=== PATIENT | female | born 1950 | race Caucasian/White ===

== ENCOUNTER → 2018-12-17 | Outpatient (CLI) | payer MEDICARE, OTHER ==
--- NOTE | 2018-12-17 11:09 | REP ---
Chest two views HISTORY: Chronic cough Comparison: None The lungs are clear. The cardiac silhouette is enlarged. The pulmonary vasculature is normal in appearance. The bony structure is intact. IMPRESSION: Cardiomegaly. Electronically Signed by Johnnie Braga MD 12/17/2018 11:00 A
== END ==
LOC: M ADAMS 10:01
PROVIDERS: ATTEND Family Medicine
DX: I51.7 Cardiomegaly (principal); R05 Cough; E11.9 Type 2 diabetes mellitus without complications; E78.5 Hyperlipidemia, unspecified
CPT/HCPCS: 71046; 80053; 80061; 82043; 83036; 84439; 84443; 85027; G0463

== ENCOUNTER → 2018-12-17 | Outpatient (REF) | payer MEDICARE, OTHER ==
[2018-12-17 12:35] LABS: HEMOGLOBIN 13.6 g/dl (12.0-15.5); MEAN CORPUSCULAR HEMOGLOBIN 29.4 pg (27.0-33.0); MEAN CORPUSCULAR HGB CONC 33.2 g/dl (32.0-36.5); MEAN CORPUSCULAR VOLUME 88.7 fl (80.0-96.0); PLATELET COUNT, AUTOMATED 256 10^3/uL (150-450); RED BLOOD COUNT 4.62 10^6/uL (4.00-5.40); WHITE BLOOD COUNT 8.5 10^3/uL (4.0-10.0)
[2018-12-17 13:37] LABS: ALBUMIN 3.7 GM/DL (3.2-5.2); ALT/SGPT 24 U/L (12-78); BILIRUBIN,TOTAL 0.3 MG/DL (0.2-1.0); BLOOD UREA NITROGEN 12 MG/DL (7-18); CARBON DIOXIDE LEVEL 28 MEQ/L (21-32); CHLORIDE LEVEL 106 MEQ/L (98-107); CHOLESTEROL LEVEL 149 MG/DL (<200); CHOLESTEROL RISK RATIO 2.811 (<5); CREATININE FOR GFR 0.82 MG/DL (0.55-1.30); FREE T4 0.98 NG/DL (0.76-1.46); GLOMERULAR FILTRATION RATE > 60.0 (>45); GLUCOSE, FASTING 155 MG/DL (70-100); HDL CHOLESTEROL 53 MG/DL (>40); LDL CHOLESTEROL 65 MG/DL (<100); NON-HDL-C 96 MG/DL; POTASSIUM SERUM 4.3 MEQ/L (3.5-5.1); SODIUM LEVEL 141 MEQ/L (136-145); TOTAL PROTEIN 6.8 GM/DL (6.4-8.2); TRIGLYCERIDES LEVEL 155 MG/DL (<150)
[2018-12-17 14:03] LABS: MALB URINE SIEMENS 16.5 MG/L; MAU/CREAT RATIO 8.7 MCG/MG (0.0-30.0)
== END ==
LOC: M SFHCADAM 09:43
PROVIDERS: ATTEND Family Medicine
DX: E11.9 Type 2 diabetes mellitus without complications (principal); E78.5 Hyperlipidemia, unspecified; I11.9 Hypertensive heart disease without heart failure; R05 Cough

== ENCOUNTER → 2019-04-21 | Outpatient (REF) | payer MEDICARE, OTHER | LOC: M SFHCPLAZ 12:57 | PROVIDERS: ATTEND Dermatology | DX: L57.0 Actinic keratosis (principal) ==

== ENCOUNTER → 2019-06-19 | Outpatient (REF) | payer MEDICARE ==
[2019-06-19 12:50] LABS: BLOOD UREA NITROGEN 8 MG/DL (7-18); CARBON DIOXIDE LEVEL 28 MEQ/L (21-32); CHLORIDE LEVEL 107 MEQ/L (98-107); CREATININE FOR GFR 0.83 MG/DL (0.55-1.30); GLOMERULAR FILTRATION RATE > 60.0 (>45); GLUCOSE, FASTING 117 MG/DL (70-100); POTASSIUM SERUM 3.9 MEQ/L (3.5-5.1); SODIUM LEVEL 144 MEQ/L (136-145)
[2019-06-19 13:23] LABS: HEMOGLOBIN A1c 8.8 %
== END ==
LOC: M SFHCADAM 10:03
PROVIDERS: ATTEND Family Medicine
DX: E11.9 Type 2 diabetes mellitus without complications (principal)

== ENCOUNTER → 2019-12-31 | Outpatient (CLI) | payer MEDICARE ==
[2019-12-31 16:18] LABS: MEAN CORPUSCULAR HEMOGLOBIN 29.4 pg (27.0-33.0); MEAN CORPUSCULAR HGB CONC 31.8 g/dl (32.0-36.5); MEAN CORPUSCULAR VOLUME 92.4 fl (80.0-96.0); PLATELET COUNT, AUTOMATED 283 10^3/uL (150-450); RED BLOOD COUNT 4.76 10^6/uL (4.00-5.40)
[2019-12-31 16:33] LABS: ALBUMIN 3.6 GM/DL (3.2-5.2); ALT/SGPT 23 U/L (12-78); BILIRUBIN,TOTAL 0.3 MG/DL (0.2-1.0); BLOOD UREA NITROGEN 13 MG/DL (7-18); CALCIUM LEVEL 9.2 MG/DL (8.8-10.2); CARBON DIOXIDE LEVEL 31 MEQ/L (21-32); CHLORIDE LEVEL 106 MEQ/L (98-107); CHOLESTEROL LEVEL 147 MG/DL (<200); CHOLESTEROL RISK RATIO 2.578 (<5); CREATININE FOR GFR 0.89 MG/DL (0.55-1.30); GLOMERULAR FILTRATION RATE > 60.0 (>45); GLUCOSE, FASTING 166 MG/DL (70-100); HDL CHOLESTEROL 57 MG/DL (>40); LDL CHOLESTEROL 64 MG/DL (<100); NON-HDL-C 90 MG/DL; POTASSIUM SERUM 4.5 MEQ/L (3.5-5.1); SODIUM LEVEL 142 MEQ/L (136-145); TOTAL PROTEIN 6.9 GM/DL (6.4-8.2); TRIGLYCERIDES LEVEL 131 MG/DL (<150)
[2019-12-31 16:49] LABS: MALB URINE SIEMENS 14.4 MG/L
== END ==
LOC: M WUC 10:49
PROVIDERS: ATTEND Family Medicine
DX: E11.9 Type 2 diabetes mellitus without complications (principal); E78.5 Hyperlipidemia, unspecified; J20.9 Acute bronchitis, unspecified

== ENCOUNTER → 2020-04-22 | Outpatient (REF) | payer MEDICARE ==
[~2020-04-22] MED LIST: ECOT81TA5 PO; HUMU1INJ; INSULANT SQ; LISI10TA4; METF500T13; SIMV40TA20
[2020-04-22 13:53] LABS: BLOOD UREA NITROGEN 12 MG/DL (7-18); CALCIUM LEVEL 9.6 MG/DL (8.8-10.2); CARBON DIOXIDE LEVEL 28 MEQ/L (21-32); CHLORIDE LEVEL 109 MEQ/L (98-107); CREATININE FOR GFR 0.96 MG/DL (0.55-1.30); GLOMERULAR FILTRATION RATE > 60.0 (>45); GLUCOSE, FASTING 88 MG/DL (70-100); POTASSIUM SERUM 4.3 MEQ/L (3.5-5.1); SODIUM LEVEL 144 MEQ/L (136-145)
[2020-04-22 15:54] LABS: HEMOGLOBIN A1c 6.9 %
== END ==
LOC: M SFHCADAM 09:34
PROVIDERS: ATTEND Family Medicine
DX: E11.9 Type 2 diabetes mellitus without complications (principal)

== ENCOUNTER → 2020-05-27 | Outpatient (CLI) | payer MEDICARE ==
--- NOTE | 2020-05-31 15:41 | REPMRS ---
Patient History The patient states she has not had a clinical breast exam in over a year. Patient has history of skin cancer. Family history of breast cancer at age 62 in sister. No Hormone Replacement Therapy Digital Woman Screen Mammo: May 27, 2020 - Exam #: [id number] Bilateral CC and MLO view(s) were taken. Technologist: Henrietta Polanco, Technologist Prior study comparison: 2016, bilateral digital woman screen mammo, performed at [facility]. FINDINGS: There are scattered fibroglandular densities. The Volpara volumetric breast density category is:B. There has been no change in the appearance of the mammogram from the prior studies. There is a mild amount of scattered fibroglandular density which is fairly symmetric. There is no interval development of dominant mass, architectural distortion, or grouped microcalcification suggestive of malignancy. 3-D tomosynthesis shows no additional findings. Assessment: BI-RADS/ACR category 1 mammogram. Negative Mammogram. Recommendation Routine screening mammogram of both breasts in 1 year (for women over age 40). This patient's Lifetime Breast Cancer Risk is estimated at 9.5 %. This mammogram was interpreted with the aid of an FDA-approved computer-aided dectection system. Electronically Signed By: Gonzalo Velarde MD 05/31/20 [id number]
--- NOTE | 2020-06-04 08:42 | DEXA ---
AP SPINE L1 - L4 1.343 1.2 2.8 LT FEMUR TOTAL 1.210 1.6 2.9 LT NECK 1.176 1.0 2.6 RT FEMUR TOTAL 1.246 1.9 3.2 RT NECK 1.099 0.4 2.0 TOTAL BODY TOTAL OTHER COMMENTS: There is low bone density of the spine and hips. FOLLOW-UP: Recommendation for the next bone density exam: 5 years. DEANN
== END ==
LOC: M WHC 12:14
PROVIDERS: ATTEND Physician Assistant Medical
DX: Z12.31 Encounter for screening mammogram for malignant neoplasm of breast (principal); M81.0 Age-related osteoporosis without current pathological fracture

== ENCOUNTER → 2020-08-12 | Outpatient (CLI) | payer MEDICARE | LOC: M LABSMTC 11:24 | PROVIDERS: ATTEND Anesthesiology | DX: Z01.812 Encounter for preprocedural laboratory examination (principal); Z20.828 Contact with and (suspected) exposure to other viral communicable diseases | CPT/HCPCS: C9803; U0003 ==

== ENCOUNTER → 2020-08-18 | Outpatient (REF) | payer MEDICARE ==
[2020-08-18 13:10] LABS: CALCIUM LEVEL 9.4 MG/DL (8.8-10.2); CREATININE FOR GFR 1.04 MG/DL (0.55-1.30); GLOMERULAR FILTRATION RATE 56.1 (>45); POTASSIUM SERUM 4.6 MEQ/L (3.5-5.1)
[2020-08-18 13:16] LABS: HEMOGLOBIN A1c 6.6 %
== END ==
LOC: M SFHCADAM 09:56
PROVIDERS: ATTEND Family Medicine
DX: E11.649 Type 2 diabetes mellitus with hypoglycemia without coma (principal)

== ENCOUNTER → 2020-08-19 | Outpatient (CLI) | payer MEDICARE ==
--- NOTE | 2020-08-19 15:24 | REP ---
INDICATION: BRONCHITIS. COMPARISON: Comparison chest x-ray December 17, 2018. TECHNIQUE: Two views.. FINDINGS: The lungs are symmetrically aerated and free of infiltrate. Pleural angles are sharp. Heart is moderately enlarged unchanged. Cardiothoracic ratio is 57.3%. The thoracic aorta is somewhat tortuous. There are degenerative changes in the thoracic spine. Pulmonary vasculature is not increased. IMPRESSION: Moderate cardiac enlargement. No infiltrate seen. Otherwise no acute disease.. <Electronically signed by Gonzalo Velarde > 08/19/20 [id number]
== END ==
LOC: M LABSMTC 11:19 → M ADAMS 11:19
PROVIDERS: ATTEND Family Medicine
DX: J20.9 Acute bronchitis, unspecified (principal); M51.34 Other intervertebral disc degeneration, thoracic region

== ENCOUNTER → 2020-09-09 | Outpatient (CLI) | payer MEDICARE ==
[~2020-09-09] MED LIST changes: +VALS1TAB66 PO
== END ==
LOC: M LABSMT 15:00
PROVIDERS: ATTEND Anesthesiology
DX: Z20.828 Contact with and (suspected) exposure to other viral communicable diseases (principal)

== ENCOUNTER 2020-09-14 06:41 | Day surgery (SDC) | payer MEDICARE ==
[~2020-09-14] VITALS: Ht 165.1 cm; Wt 118.8 kg
[~2020-09-14 06:41] MED LIST changes: +NS 1,000 ML IV ONE
[2020-09-14] MEDS ORDERED: propofoL 200 MG/20 ML VIAL As Ordered ONE ×2 (07:38→08:13)
--- NOTE | 2020-09-14 08:44 | ROOR ---
" Patient Name: Kay Mendoza Procedure Date: 09/14/2020 7:35 AM Date of : 1950 Age: 70 Room: [facility] Gender: Female Note Status: Finalized Procedure: Colonoscopy Indications: Screening for colorectal malignant neoplasm Providers: Wagner Hawthorne MD Referring MD: Elbert Stone MD Requesting Provider: Medicines: Monitored Anesthesia Care Complications: No immediate complications. Procedure: Pre-Anesthesia Assessment: - Prior to the procedure, a History and Physical was performed, and patient medications and allergies were reviewed. The patient is competent. The risks and benefits of the procedure and the sedation options and risks were discussed with the patient. All questions were answered and informed consent was obtained. Patient identification and proposed procedure were verified by the physician, the nurse and the anesthesiologist in the procedure room. Mental Status Examination: alert and oriented. Airway Examination: normal oropharyngeal airway and neck mobility. Respiratory Examination: clear to auscultation. CV Examination: normal. Prophylactic Antibiotics: The patient does not require prophylactic antibiotics. Prior Anticoagulants: The patient has taken no previous anticoagulant or antiplatelet agents. ASA Grade Assessment: II - A patient with mild systemic disease. After reviewing the risks and benefits, the patient was deemed in satisfactory condition to undergo the procedure. The anesthesia plan was to use monitored anesthesia care (MAC). Immediately prior to administration of medications, the patient was re-assessed for adequacy to receive sedatives. The heart rate, respiratory rate, oxygen saturations, blood pressure, adequacy of pulmonary ventilation, and response to care were monitored throughout the procedure. The physical status of the patient was re-assessed after the procedure. The Colonoscope was introduced through the anus and advanced to the cecum, identified by appendiceal orifice and ileocecal valve. The colonoscopy was performed without difficulty. The patient tolerated the procedure well. The quality of the bowel preparation was good. The ileocecal valve, appendiceal orifice, and rectum were photographed. Scope insertion time was 3 minutes. Scope withdrawal time was 9 minutes. The total duration of the procedure was 25 minutes. Findings: The perianal and digital rectal examinations were normal. Six sessile polyps were found in the recto-sigmoid colon, transverse colon and ascending colon. The polyps were 5 to 12 mm in size. These polyps were removed with a hot snare. Resection and retrieval were complete. Verification of patient identification for the specimen was done by the physician and nurse using the patient's name, date and medical record number. Estimated blood loss was minimal. A 16 mm polyp was found in the sigmoid colon. The polyp was |multi-lobulated and sessile|. The polyp was removed with a piecemeal technique using a hot biopsy forceps and The polyp was removed with a hot snare. Resection and retrieval were complete. Two hemostatic clips were successfully placed. Multiple small and large-mouthed diverticula were found from sigmoid to descending colon. There was no evidence of diverticular bleeding. Non-bleeding external and internal hemorrhoids were found during retroflexion. The hemorrhoids were medium-sized. Impression: - Six 5 to 12 mm polyps at the recto-sigmoid colon, in the transverse colon and in the ascending colon, removed with a hot snare. Resected and retrieved. - One 16 mm polyp in the sigmoid colon, removed piecemeal using a hot biopsy forceps and removed with a hot snare. Resected and retrieved. Clips were placed. - Moderate diverticulosis from sigmoid to descending colon. There was no evidence of diverticular bleeding. - Non-bleeding external and internal hemorrhoids. Recommendation: - Patient has a contact number available for emergencies. The signs and symptoms of potential delayed complications were discussed with the patient. Return to normal activities tomorrow. Written discharge instructions were provided to the patient. - High fiber diet. - Continue present medications. - Use fiber, for example Citrucel, Fibercon, Konsyl or Metamucil. - Await pathology results. - Repeat colonoscopy in 4 months for surveillance after piecemeal polypectomy and for surveillance of multiple polyps. - Return to GI clinic in [facility] (address [address], [address], [place], [facility] [place]) in 4 -- 6 weeks. Please call GI clinic @ [phone] for apppointment date and time. - Return to primary care physician. Procedure Code(s): --- Professional --- 47809, Colonoscopy, flexible; with removal of tumor(s), polyp(s), or other lesion(s) by snare technique Diagnosis Code(s): --- Professional --- K63.5, Polyp of colon Z12.11, Encounter for screening for malignant neoplasm of colon K64.8, Other hemorrhoids K57.30, Diverticulosis of large intestine without perforation or abscess without bleeding CPT copyright 2019 [employer]. All rights reserved. The codes documented in this report are preliminary and upon rug scratcher review may be revised to meet current compliance requirements. Wagner Hawthorne MD Wagner Hawthorne MD 09/14/2020 8:44:39 AM Electronically signed by Wagner Hawthorne MD Number of Addenda: 0 Note Initiated On: 09/14/2020 7:35 AM Estimated Blood Loss: Estimated blood loss was minimal."
[2020-09-14 09:00] VITALS: BP 137/78
== END 2020-09-14 09:00 | disposition home or self-care (01) ==
LOC: M OPP 06:41
PROVIDERS: ATTEND Internal Medicine Gastroenterology
DX: Z12.11 Encounter for screening for malignant neoplasm of colon (principal); Z63.5 Disruption of family by separation and divorce; K64.8 Other hemorrhoids; K57.30 Diverticulosis of large intestine without perforation or abscess without bleeding; E11.9 Type 2 diabetes mellitus without complications; I10 Essential (primary) hypertension; Z79.4 Long term (current) use of insulin; Z79.899 Other long term (current) drug therapy
CPT/HCPCS: 45385; 88305; U0003

== ENCOUNTER → 2020-09-16 | Outpatient (CLI) | payer MEDICARE ==
[~2020-09-16] MED LIST changes: +LISI10TA22; -LISI10TA4; -NS 1,000 ML IV ONE
[2020-09-16 16:21] LABS: HEMATOCRIT 42.9 % (36.0-47.0); HEMOGLOBIN 13.1 g/dl (12.0-15.5); MEAN CORPUSCULAR HEMOGLOBIN 27.8 pg (27.0-33.0); MEAN CORPUSCULAR HGB CONC 30.5 g/dl (32.0-36.5); MEAN CORPUSCULAR VOLUME 90.9 fl (80.0-96.0); PLATELET COUNT, AUTOMATED 237 10^3/uL (150-450); RED BLOOD COUNT 4.72 10^6/uL (4.00-5.40); WHITE BLOOD COUNT 8.4 10^3/uL (4.0-10.0)
[2020-09-16 16:33] LABS: BLOOD UREA NITROGEN 14 MG/DL (7-18); CALCIUM LEVEL 9.1 MG/DL (8.8-10.2); CARBON DIOXIDE LEVEL 25 MEQ/L (21-32); CHLORIDE LEVEL 108 MEQ/L (98-107); CREATININE FOR GFR 0.95 MG/DL (0.55-1.30); FREE T4 1.09 NG/DL (0.76-1.46); GLOMERULAR FILTRATION RATE > 60.0 (>45); GLUCOSE, FASTING 165 MG/DL (70-100); POTASSIUM SERUM 4.5 MEQ/L (3.5-5.1); SODIUM LEVEL 140 MEQ/L (136-145); THYROID STIMULATING HORMONE 0.643 uIU/ML (0.358-3.740)
== END ==
LOC: M WUC 10:42
PROVIDERS: ATTEND Family Medicine
DX: R00.8 Other abnormalities of heart beat (principal); C18.7 Malignant neoplasm of sigmoid colon; Z79.899 Other long term (current) drug therapy

== ENCOUNTER → 2020-09-16 | Outpatient (REF) | payer MEDICARE ==
[~2020-09-16] MED LIST changes: -LISI10TA22; +LISI10TA4
[2020-09-16 18:01] LABS: ALBUMIN 3.7 GM/DL (3.2-5.2); ALT/SGPT 19 U/L (12-78); BILIRUBIN,DIRECT 0.1 MG/DL (0.0-0.2); BILIRUBIN,TOTAL 0.4 MG/DL (0.2-1.0); BLOOD UREA NITROGEN 13 MG/DL (7-18); CREATININE FOR GFR 0.96 MG/DL (0.55-1.30); GLOMERULAR FILTRATION RATE > 60.0 (>45); TOTAL PROTEIN 6.8 GM/DL (6.4-8.2)
[2020-09-16 18:32] LABS: BASO # 0.1 10^3/uL (0.0-0.2); BASO % 0.7 % (0.0-1.0); EOS # 0.3 10^3/uL (0.0-0.5); EOS % 4.1 % (0.0-3.0); HEMOGLOBIN 13.2 g/dl (12.0-15.5); LYMPH # 1.9 10^3/uL (1.5-5.0); LYMPH % 23.3 % (24.0-44.0); MEAN CORPUSCULAR HEMOGLOBIN 27.8 pg (27.0-33.0); MEAN CORPUSCULAR HGB CONC 30.7 g/dl (32.0-36.5); MEAN CORPUSCULAR VOLUME 90.5 fl (80.0-96.0); MONO # 0.5 10^3/uL (0.0-0.8); MONO % 6.6 % (0.0-5.0); NEUTROPHILS # 5.4 10^3/uL (1.5-8.5); NEUTROPHILS % 65.2 % (36.0-66.0); PLATELET COUNT, AUTOMATED 240 10^3/uL (150-450); RED BLOOD COUNT 4.75 10^6/uL (4.00-5.40); WHITE BLOOD COUNT 8.2 10^3/uL (4.0-10.0)
== END ==
LOC: M LAB REF 17:23
PROVIDERS: ATTEND Internal Medicine Gastroenterology
DX: C18.7 Malignant neoplasm of sigmoid colon (principal)

== ENCOUNTER → 2020-09-17 | Outpatient (CLI) | payer MEDICARE ==
--- NOTE | 2020-09-20 10:29 | ECHO ---
DATE OF PROCEDURE: 09/17/2020 Age: 70 Gender: Female Height: 168 cm Weight: 120 kg REFERRING PHYSICIAN: Elbert Stone MD INDICATION: Abnormal ECG. MEASUREMENTS: 2D Measurements: Intraventricular septum 0.96 cm Left atrium 4.2 cm Aortic root 3.0 cm Proximal ascending aorta 3.6 cm Inferior vena cava 1.8 cm Doppler Measurements: No aortic stenosis No aortic regurgitation Aortic valve velocity 112 cm/s LVOT velocity 64.8 cm/s Trace mitral regurgitation No mitral stenosis Mitral E velocity 70.6 cm/s Mitral A velocity 62.0 cm/s Mitral deceleration time 222 msec No tricuspid regurgitation Mild pulmonic regurgitation MITRAL ANNULAR TISSUE DOPPLER Technically difficult - E prime septal 4.4 cm/s, E prime lateral 2.5 cm/s ? DESCRIPTION: Rhythm was sinus with frequent PVCs. This was a moderately technically difficult echocardiogram. No pericardial effusion. CONCLUSIONS: 1. Left ventricle appeared to be normal in size and wall thickness. Probably normal regional left ventricular (LV) wall motion and wall thickening, but technically difficult for complete endocardial visualization. Overall normal left ventricular (LV) systolic function. Left ventricular ejection fraction (LVEF) 60% by visual estimate. Probably pseudonormal left ventricular (LV) diastolic dysfunction. 2. Mild left atrial dilatation. 3. Normal right ventricle size and systolic function. 4. Moderate mitral annular calcification. Trace mitral regurgitation. No mitral stenosis. 5. Moderately technically difficult echocardiogram. [facility]
== END ==
LOC: M CARPUL 12:22
PROVIDERS: ATTEND Family Medicine
DX: R00.8 Other abnormalities of heart beat (principal)

== ENCOUNTER → 2020-10-11 | Outpatient (CLI) | payer MEDICARE ==
--- NOTE | 2020-10-11 07:47 | REP ---
INDICATION: NEEOPLASM OF UNCERTAIN BEHAVIOR OF R KIDNEY COMPARISON: None. TECHNIQUE: Real time ross scale ultrasound examination using curved array transducer. FINDINGS: Liver is hyperechoic and suggests fatty infiltration without focal hepatic lesion identified. Pancreas is incompletely evaluated due to interposed bowel gas. The gallbladder is normal and without gallstones, wall thickening, or pericholecystic fluid. No biliary ductal dilatation is appreciated and the common bile duct measures 6.5 mm diameter. Right kidney measures 12.8 x 6.4 x 4.4 cm and includes 6.4 x 5.1 x 6.1 cm upper pole complex cyst versus mass along with 2.6 x 2.1 x 2.3 cm midpole and 4.5 x 3.0 x 5.0 lower pole simple cysts. No ascites in the visualized right upper quadrant. IMPRESSION: 1. Complex upper pole renal lesion. Consider pre and postcontrast CT for further more definitive evaluation. <Electronically signed by Ty Figueroa > 10/11/20 0744
== END ==
LOC: M RAD 06:58
PROVIDERS: ATTEND Surgery
DX: D41.01 Neoplasm of uncertain behavior of right kidney (principal)

== ENCOUNTER → 2020-12-06 | Outpatient (REF) | payer MEDICARE ==
[~2020-12-06] MED LIST changes: +APIDINJ SC; -HUMU1INJ; +HUMU1INJ SC; +LISI10TA22; -LISI10TA4; -METF500T13; +METF500T13 PO; -SIMV40TA20; +SIMV40TA20 PO
[2020-12-06 12:30] LABS: HEMATOCRIT 44.1 % (36.0-47.0); MEAN CORPUSCULAR HEMOGLOBIN 28.9 pg (27.0-33.0); MEAN CORPUSCULAR HGB CONC 31.7 g/dl (32.0-36.5); MEAN CORPUSCULAR VOLUME 90.9 fl (80.0-96.0); PLATELET COUNT, AUTOMATED 293 10^3/uL (150-450); RED BLOOD COUNT 4.85 10^6/uL (4.00-5.40); WHITE BLOOD COUNT 10.8 10^3/uL (4.0-10.0)
[2020-12-06 12:40] LABS: APPEARANCE, URINE CLOUDY (CLEAR); BACTERIA, URINE AUTO 1+ (NEGATIVE); BILIRUBIN, URINE AUTO NEGATIVE (NEGATIVE); BLOOD, URINE BLOOD NEGATIVE (NEGATIVE); COLOR, URINE YELLOW (YELLOW); GLUCOSE, URINE (UA) AUTO NEGATIVE (NEGATIVE); INR 0.92; KETONE, URINE AUTO NEGATIVE (NEGATIVE); LEUKOCYTE ESTERASE, URINE AUTO 1+ (NEGATIVE); MUCUS, URINE SMALL (NEGATIVE); NITRITE, URINE AUTO NEGATIVE (NEGATIVE); PROTEIN, URINE AUTO NEGATIVE (NEGATIVE); PROTHROMBIN TIME 12.5 SECONDS (12.5-14.3); RBC, URINE AUTO 2 /HPF (0-3); SPECIFIC GRAVITY URINE AUTO 1.019 (1.002-1.035); SQUAMOUS EPITHELIAL CELL UR AU 11 /HPF (0-6); UROBILINOGEN, URINE AUTO 0.2 mg/dL (0.0-2.0); WBC, URINE AUTO 6 /HPF (0-3)
[2020-12-06 12:41] LABS: PARTIAL THROMBOPLASTIN TIME 29.7 SECONDS (24.2-38.5)
[2020-12-06 12:55] LABS: ALBUMIN 3.7 GM/DL (3.2-5.2); BILIRUBIN,TOTAL 0.4 MG/DL (0.2-1.0); CALCIUM LEVEL 9.2 MG/DL (8.8-10.2); CREATININE FOR GFR 1.03 MG/DL (0.55-1.30); GLOMERULAR FILTRATION RATE 56.7 (>45); POTASSIUM SERUM 4.1 MEQ/L (3.5-5.1)
== END ==
LOC: M LABSMT 09:26 → M SFHCADAM 09:32
PROVIDERS: ATTEND Nurse Practitioner Women's Health
DX: Z01.818 Encounter for other preprocedural examination (principal); N28.89 Other specified disorders of kidney and ureter

== ENCOUNTER → 2020-12-06 | Outpatient (CLI) | payer MEDICARE ==
--- NOTE | 2020-12-06 11:04 | REP ---
INDICATION: RENAL MASS COMPARISON: 08/19/2020 TECHNIQUE: PA and lateral. FINDINGS: The mediastinum and cardiac silhouette are normal. The lung marquis are clear and without acute consolidation, effusion, or pneumothorax. The skeletal structures are intact and normal. IMPRESSION: No acute cardiopulmonary process. <Electronically signed by Ty Figueroa > 12/06/20 1100
== END ==
LOC: M ADAMS 09:14
PROVIDERS: ATTEND Nurse Practitioner Women's Health
DX: Z01.818 Encounter for other preprocedural examination (principal); N28.89 Other specified disorders of kidney and ureter

== ENCOUNTER → 2020-12-07 | Outpatient (REF) | payer MEDICARE ==
[~2020-12-07] MED LIST changes: +DOK1CAP7 PO; +PERCOCET PO
[2020-12-07 18:21] LABS: APPEARANCE, URINE CLEAR (CLEAR); BACTERIA, URINE AUTO NEGATIVE (NEGATIVE); BILIRUBIN, URINE AUTO NEGATIVE (NEGATIVE); BLOOD, URINE BLOOD NEGATIVE (NEGATIVE); COLOR, URINE YELLOW (YELLOW); GLUCOSE, URINE (UA) AUTO NEGATIVE (NEGATIVE); KETONE, URINE AUTO NEGATIVE (NEGATIVE); LEUKOCYTE ESTERASE, URINE AUTO NEGATIVE (NEGATIVE); MUCUS, URINE SMALL (NEGATIVE); NITRITE, URINE AUTO NEGATIVE (NEGATIVE); PROTEIN, URINE AUTO NEGATIVE (NEGATIVE); RBC, URINE AUTO 0 /HPF (0-3); SPECIFIC GRAVITY URINE AUTO 1.019 (1.002-1.035); SQUAMOUS EPITHELIAL CELL UR AU 1 /HPF (0-6); UROBILINOGEN, URINE AUTO 0.2 mg/dL (0.0-2.0); WBC, URINE AUTO 0 /HPF (0-3)
== END ==
LOC: M SMT 16:56
PROVIDERS: ATTEND Nurse Practitioner Women's Health
DX: Z01.818 Encounter for other preprocedural examination (principal); N28.89 Other specified disorders of kidney and ureter

== ENCOUNTER → 2020-12-09 | Outpatient (CLI) | payer MEDICARE ==
[~2020-12-09] MED LIST changes: -DOK1CAP7 PO; -PERCOCET PO
== END ==
LOC: M LABSMTC 09:56
PROVIDERS: ATTEND Anesthesiology
DX: Z01.812 Encounter for preprocedural laboratory examination (principal); Z20.822 Contact with and (suspected) exposure to COVID-19

== ENCOUNTER 2020-12-14 06:15 | Inpatient (IN) | payer MEDICARE ==
[~2020-12-14] VITALS: Ht 167.6 cm; Wt 118.8 kg
[~2020-12-14 06:15] MED LIST changes: +LIDOCAINE 1% MDV 20ML VIAL SQ PRN; +LR 1,000 ML IV ONE; +ceFAZolin SOD 2 GM in IV 1 EA IV ONE
[2020-12-14] MEDS ORDERED: BUPIVACAINE HCL 0.25% 30ML VIAL As Ordered ONE (07:08)
[2020-12-14] MEDS ORDERED: LIDOCAINE 1% SDV 30ML VIAL As Ordered ONE (07:08)
[2020-12-14] MEDS ORDERED: GLUCOSE 4GM CHEW TABLET PO PRN (07:25)
[2020-12-14] MEDS ORDERED: GLUCAGON INJ 1MG VIAL SC PRN (07:25)
[2020-12-14] MEDS ORDERED: ONDANSETRON 4MG/2ML VIAL IV PRN ×2 (07:25→13:20)
[2020-12-14] MEDS ORDERED: ACETAMINOPHEN TAB 650MG DOSE (2X325MG) PO PRN (07:25)
[2020-12-14] MEDS ORDERED: MORPHINE 2 MG/ML 1ML VIAL (J2270) IV PRN (07:25)
[2020-12-14] MEDS ORDERED: DEXTROSE 50% 50 ML SYRINGE IV PRN (07:25)
[2020-12-14] MEDS ORDERED: ROCURONIUM BROMIDE 50 MG/5 ML VIAL As Ordered ONE ×3 (08:37→11:38)
[2020-12-14] MEDS ORDERED: ACETAMINOPHEN 1000MG 100ML IV BTL (OFIRMEV) (J0131 PER 10MG) As Ordered ONE (08:37)
[2020-12-14] MEDS ORDERED: fentaNYL 100 MCG/2 ML INJECTION (J3010) As Ordered ONE (08:37)
[2020-12-14] MEDS ORDERED: ONDANSETRON 4MG/2ML VIAL As Ordered ONE (08:37)
[2020-12-14] MEDS ORDERED: propofoL 200 MG/20 ML VIAL As Ordered ONE ×2 (08:37→12:32)
[2020-12-14] MEDS ORDERED: MIDAZOLAM INJ 2MG/2ML VIAL (J2250 PER 1MG) As Ordered ONE (08:37)
[2020-12-14] MEDS ORDERED: PHENYLephrine 500MCG 5ML (100MCG/ML) SYRINGE As Ordered ONE ×3 (08:37→12:03)
[2020-12-14] MEDS ORDERED: dexameTHASONE 4 MG/ML 1ML VIAL (J1100 PER 1MG) As Ordered ONE (08:37)
[2020-12-14] MEDS ORDERED: HYDROmorphone HCL 2 MG/ML 1ML VIAL (J1170) As Ordered ONE (08:37)
[2020-12-14] MEDS ORDERED: ePHEDrine SULFATE 25 MG/5 ML(5MG/ML) SYRINGE As Ordered ONE (08:37)
[2020-12-14] MEDS ORDERED: LIDOCAINE 2% 100MG/5ML SDV (FOR ANES.) As Ordered ONE (08:37)
[2020-12-14] MEDS ORDERED: SUGAMMADEX SODIUM 500 MG/5 ML VIAL (BRIDION) As Ordered ONE (08:52)
[2020-12-14] MEDS: DOCUSATE SODIUM 100MG CAPSULE PO SCH ×2 (09:00→21:42)
[2020-12-14] MEDS: HumaLOG INSULIN (NovoLOG) PER UNIT SC SCH ×5 (12:00→21:00)
[2020-12-14] MEDS ORDERED: METOCLOPRAMIDE INJ 10MG/2ML VIAL (J2765 PER 1) IV PRN (13:20)
[2020-12-14] MEDS ORDERED: LR 1,000 ML IV SCH (13:20)
[2020-12-14] MEDS ORDERED: PERCOCET 5MG/325MG TAB PO PRN (13:20)
[2020-12-14] MEDS: fentaNYL 100 MCG/2 ML INJECTION (J3010) IV PRN ×4 (13:27→14:05)
[2020-12-14] MEDS: PERCOCET 5MG/325MG TAB PO PRN ×3 (13:28→18:11)
[2020-12-14 13:37] LABS: HEMATOCRIT 40.1 % (36.0-47.0); HEMOGLOBIN 12.8 g/dl (12.0-15.5); MEAN CORPUSCULAR HEMOGLOBIN 28.8 pg (27.0-33.0); MEAN CORPUSCULAR HGB CONC 31.9 g/dl (32.0-36.5); MEAN CORPUSCULAR VOLUME 90.1 fl (80.0-96.0); PLATELET COUNT, AUTOMATED 236 10^3/uL (150-450); RED BLOOD COUNT 4.45 10^6/uL (4.00-5.40); WHITE BLOOD COUNT 13.3 10^3/uL (4.0-10.0)
[2020-12-14] MEDS ORDERED: HumaLOG INSULIN (NovoLOG) PER UNIT SC ONE (13:50)
--- NOTE | 2020-12-14 14:00 | ROOPDOC ---
[facility] Report Of Operation Report of Operation DATE OF PROCEDURE: 12/14/20 PREPROCEDURE DIAGNOSIS: Right Renal Neoplasm. POSTPROCEDURE DIAGNOSIS: Right Renal Neoplasm. PROCEDURE: Right robotic-assisted laparoscopic radical nephrectomy (adrenal- sparing). SURGEON: Yani De La Vega MD ASSISTANT PRODUCTION MANAGER: Juanis Robles NP ANESTHESIA: General OPERATIVE INDICATIONS: This is a 70-year-old female with a 6.2cm centrally located enhancing right renal mass concerning for renal cell carcinoma. It was recommended that she undergo the above procedure for treatment. DESCRIPTION OF PROCEDURE: The patient was brought to the operating room where general anesthesia was induced. Prophylactic antibiotics were infused. A Jaime catheter was placed under sterile conditions. Next, the patient was placed in the left lateral decubitus position. All pressure points were appropriately padded and an axillary roll was placed. We then secured the patient to the table with tape. Her abdomen was then prepped and draped in the usual sterile fashion. Next, an 8mm incision was made in line with the 11th rib along the lateral border of the rectus. Pneumoperitoneum was achieved with a Veress needle. Next, an 8mm port was placed for the camera. The camera was inserted and there were no injuries for initial port placement. An 8mm right hand robotic port was placed just off the costal margin. A 5mm activity assistant port was placed just inferior to the xyphoid process for liver retraction. At this point, a two left hand robotic ports were then placed with one between the anterior superior iliac spine and the hip and the other one just caudal to the camera port. The one just caudal to the camera port was a 12mm robotic port. Last the 15 mm activity assistant port was placed inferior and medial to the camera port. The robot was then docked. Attachments between the liver and the Gerota's fascia were then released. The liver was then lifted up using a laparoscopic locking Allis retractor. The right colon was then mobilized medially. The duodenum was Kocherized. At this point, we then developed a plane onto the psoas muscle off the lower pole of the kidney . The inferior right renal artery was identified and carefully dissected. It was then ligated with 3 Weck clips and transected, leaving 2 Weck clips on the stay side. The plan was then carried cephalad until one of the renal veins was identified. It was carefully dissected and ligated and transected using a robotic stapler. After this the more cephalad renal vein and renal artery were identified. Both were carefully dissected and then ligated and transected in similar fashion to the other artery and vein. The kidney was then mobilized and on all sides. The adrenal gland was dissected off and spared. The ureter was then ligated with Weck clips and transected in between. The kidney was then completely free. At this point, we checked for hemostasis and hemostasis appeared excellent. Mirian hemostatic agent was applied over the hilum. We then placed the right kidney in a large EndoCatch bag. This bag was closed and then left for future retrieval. We then undocked the robot and a Donnie-Lovely fascial closure device was utilized to place a 0-vicryl suture through the fascia of the 15mm port site. We then extended the incision of the 12mm right hand robotic port site to extract the specimen. We then dissected down through the musculofascial layers and extended the fascia. The muscle was bluntly spread, and we then extracted the specimen through this incision. Once that was done, we checked for hemostasis through the extraction incision and it appeared excellent. The fascia of this incision was then closed with a running #0 Vicryl suture. At this point, the abdomen was then reinsufflated. We looked at the extraction incision, and there was no active bleeding and no abdominal contents were caught within the suture. Once this was done, all the remaining ports were removed and there was no bleeding. We then tied down the #0 Vicryl suture in the 15mm port site. Once this was done, all wounds were thoroughly irrigated. The subcutaneous fat of the extraction incision was then closed with interrupted #3-0 Vicryl sutures. We then closed the skin of all incisions using subcuticular #4-0 Monocryl suture. Local anesthetic was then applied and then Dermabond was applied and marked the conclusion of the procedure. The patient was then taken out of the left lateral decubitus position, awakened from anesthesia and transported to the recovery room in stable condition. ESTIMATED BLOOD LOSS: 25mL. COMPLICATIONS: None. SPECIMENS: Right kidney. PLAN: The patient will be admitted to the hospital postoperatively for sánchez toring and discharged once her pain is controlled and her kidney function is stable. YANI DE LA VEGA MD Dec 14, 2020 07:43
[2020-12-14 14:17] LABS: CALCIUM LEVEL 8.6 MG/DL (8.8-10.2); CREATININE FOR GFR 1.25 MG/DL (0.55-1.30); GLOMERULAR FILTRATION RATE 45.4 (>45); POTASSIUM SERUM 4.5 MEQ/L (3.5-5.1)
[2020-12-14 14:50] VITALS: BP 151/94
[2020-12-14] MEDS: NS 1,000 ML IV SCH (14:56)
[2020-12-14 15:20] VITALS: BP 157/85
[2020-12-14 16:20] VITALS: BP 151/85
[2020-12-14] MEDS: ceFAZolin SOD 1 GM in D5W MINI-BAG PLUS 50 ML IV SCH (16:36)
[2020-12-14 17:20] VITALS: BP 151/85
[2020-12-14 18:20] VITALS: BP 146/83
[2020-12-14] MEDS ORDERED: HumaLOG INSULIN (NovoLOG) PER UNIT SC SCH (21:00)
[2020-12-14] MEDS: SIMVASTATIN 40 MG TAB PO SCH (21:42)
[2020-12-14 22:00] VITALS: BP 139/80
[2020-12-15] MEDS: ceFAZolin SOD 1 GM in D5W MINI-BAG PLUS 50 ML IV SCH (01:23)
[2020-12-15] MEDS: NS 1,000 ML IV SCH (03:48)
[2020-12-15 06:00] VITALS: BP 122/67
[2020-12-15 06:39] LABS: HEMATOCRIT 36.4 % (36.0-47.0); HEMOGLOBIN 11.3 g/dl (12.0-15.5); MEAN CORPUSCULAR HEMOGLOBIN 28.1 pg (27.0-33.0); MEAN CORPUSCULAR VOLUME 90.5 fl (80.0-96.0); PLATELET COUNT, AUTOMATED 191 10^3/uL (150-450); RED BLOOD COUNT 4.02 10^6/uL (4.00-5.40); WHITE BLOOD COUNT 9.8 10^3/uL (4.0-10.0)
[2020-12-15 06:57] LABS: CALCIUM LEVEL 8.3 MG/DL (8.8-10.2); CREATININE FOR GFR 1.44 MG/DL (0.55-1.30); GLOMERULAR FILTRATION RATE 38.5 (>45); POTASSIUM SERUM 4.9 MEQ/L (3.5-5.1)
[2020-12-15] MEDS: HumaLOG INSULIN (NovoLOG) PER UNIT SC SCH ×7 (07:30→20:52)
--- NOTE | 2020-12-15 07:58 | IPNPDOC ---
Subjective Review oF Systems Chief Complaint The patient is a 70-year-old female admitted with a reason for visit of Renal Mass. Events since Last Encounter No acute events o/n. Good pain control. No n/v. Tolerating diet. Has not ambulated yet. No f/c/ns. Objective Physical Examination General Exam: Alert, Cooperative, No Acute Distress ABDOMEN EXAM: Soft, Tenderness (mild), Other (incisions clean/dry/intact) Skin Exam: Nl turgor and temperature Neuro Exam: Normal Speech Psych Exam: Mental status NL, Mood NL Other physical findings catheter draining clear yellow urine Vital Signs/I&O Vital Signs Date Time Temp Pulse Resp B/P (MAP) Pulse Ox O2 Delivery O2 Flow Rate FiO2 12/15/20 06:00 97.3 57 18 122/67 (85) 95 Nasal Cannula 2.0 12/14/20 13:10 100 I&O- Last 24 Hours up to 6 AM 12/15/20 06:00 Intake Total 3940 ml Output Total 675 ml Balance 3265 ml Laboratory Data Labs 24H Laboratory Tests 2 12/14/20 13:22: Nucleated Red Blood Cells % (auto) 0.0, Anion Gap 9, Glomerular Filtration Rate 45.4, Calcium Level 8.6L 12/14/20 16:19: Bedside Glucose (Misc Panel) 236H 12/14/20 21:00: Bedside Glucose (Misc Panel) 223H 12/15/20 06:25: Nucleated Red Blood Cells % (auto) 0.0, Anion Gap 4L, Glomerular Filtration Rate 38.5L, Calcium Level 8.3L CBC/BMP Laboratory Tests 12/14/20 13:22 12/15/20 06:25 FSBS Laboratory Tests Test 12/14/20 16:19 12/14/20 21:00 Range/Units Bedside Glucose (Misc Panel) 236 223 80-115 MG/DL Assessment/Plan Date Seen The patient was seen on 12/15/20. Patient Summary This is a 70 y/o F POD1 s/p R robotic radical nephrectomy. Doing well. Good UOP. Hb stable. Cr 1.4. Plan/VTE VTE Prophylaxis Ordered?: Yes VTE Exclusion Mechanical Proph: N/A:VTE Prophy Ordered Plan - d/c Jaime - d/c IVF - encourage PO hydration - percocet prn pain - strict I/Os - ambulate - SCDs when in bed - incentive spirometry - SSI - advance diet as tolerated - possible discharge home later today YANI DE LA VEGA MD Dec 15, 2020 07:58
[2020-12-15] MEDS: DOCUSATE SODIUM 100MG CAPSULE PO SCH ×2 (08:35→20:52)
[2020-12-15] MEDS: PERCOCET 5MG/325MG TAB PO PRN ×2 (08:36→20:53)
[2020-12-15] MEDS: VALSARTAN 80 MG TAB (DIOVAN) PO SCH (08:37)
[2020-12-15 11:44] VITALS: BP 120/82
[2020-12-15] MEDS ORDERED: DOK1CAP7 PO (14:51)
[2020-12-15] MEDS ORDERED: PERCOCET PO (14:51)
[2020-12-15 15:21] LABS: CALCIUM LEVEL 8.7 MG/DL (8.8-10.2); CREATININE FOR GFR 1.73 MG/DL (0.55-1.30); GLOMERULAR FILTRATION RATE 31.2 (>45); POTASSIUM SERUM 4.2 MEQ/L (3.5-5.1)
[2020-12-15 15:32] VITALS: BP 118/62
[2020-12-15 18:00] VITALS: BP 125/82
[2020-12-15] MEDS: SIMVASTATIN 40 MG TAB PO SCH (20:52)
[2020-12-15 22:00] VITALS: BP 136/74
[2020-12-16 06:00] VITALS: BP 159/87
[2020-12-16 07:11] LABS: HEMATOCRIT 38.6 % (36.0-47.0); HEMOGLOBIN 12.3 g/dl (12.0-15.5); MEAN CORPUSCULAR HEMOGLOBIN 28.7 pg (27.0-33.0); MEAN CORPUSCULAR HGB CONC 31.9 g/dl (32.0-36.5); PLATELET COUNT, AUTOMATED 196 10^3/uL (150-450); RED BLOOD COUNT 4.29 10^6/uL (4.00-5.40); WHITE BLOOD COUNT 9.8 10^3/uL (4.0-10.0)
[2020-12-16 07:33] LABS: CREATININE FOR GFR 1.5 MG/DL (0.55-1.30); GLOMERULAR FILTRATION RATE 36.8 (>45); POTASSIUM SERUM 4.6 MEQ/L (3.5-5.1)
--- NOTE | 2020-12-16 07:55 | IPNPDOC ---
Subjective Review oF Systems Chief Complaint The patient is a 70-year-old female admitted with a reason for visit of Renal Mass. Events since Last Encounter No acute events o/n. Good pain control. Tolerating regular diet. Ambulating well. No n/v. No f/c/ns. Objective Physical Examination General Exam: Alert, Cooperative, No Acute Distress ABDOMEN EXAM: Soft, Tenderness (mild), Other (incisions clean/dry/intact) Skin Exam: Nl turgor and temperature Neuro Exam: Normal Speech Psych Exam: Mental status NL, Mood NL Vital Signs/I&O Vital Signs Date Time Temp Pulse Resp B/P (MAP) Pulse Ox O2 Delivery O2 Flow Rate FiO2 12/16/20 06:00 98.3 69 20 159/87 (111) 98 Room Air 12/15/20 06:00 2.0 12/14/20 13:10 100 I&O- Last 24 Hours up to 6 AM 12/16/20 06:00 Intake Total 2530 ml Output Total 4450 ml Balance -1920 ml Laboratory Data Labs 24H Laboratory Tests 2 12/15/20 11:35: Bedside Glucose (Misc Panel) 186H 12/15/20 14:31: Anion Gap 5L, Glomerular Filtration Rate 31.2L, Calcium Level 8.7L 12/15/20 16:48: Bedside Glucose (Misc Panel) 233H 12/15/20 20:43: Bedside Glucose (Misc Panel) 291H 12/16/20 06:47: Nucleated Red Blood Cells % (auto) 0.0, Anion Gap 7L, Glomerular Filtration Rate 36.8L, Calcium Level 9.0 CBC/BMP Laboratory Tests 12/15/20 14:31 12/16/20 06:47 FSBS Laboratory Tests Test 12/15/20 11:35 12/15/20 16:48 12/15/20 20:43 Range/Units Bedside Glucose (Misc Panel) 186 233 291 80-115 MG/DL Assessment/Plan Date Seen The patient was seen on 12/16/20. Patient Summary This is a 70 y/o F POD 2 s/p R robotic radical nephrectomy. Patient is doing well. UOP has been very good. Cr trending down to 1.5 this morning. 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 Plan/VTE VTE Prophylaxis Ordered?: Yes VTE Exclusion Mechanical Proph: N/A:VTE Prophy Ordered Plan - percocet prn pain - ambulate - SSI - regular diet - discharge home today YANI DE LA VEGA MD Dec 16, 2020 07:55
[2020-12-16] MEDS: HumaLOG INSULIN (NovoLOG) PER UNIT SC SCH (08:00)
[2020-12-16 08:39] VITALS: BP 142/84
[2020-12-16] MEDS: DOCUSATE SODIUM 100MG CAPSULE PO SCH (08:39)
[2020-12-16] MEDS: VALSARTAN 80 MG TAB (DIOVAN) PO SCH (08:39)
--- NOTE | 2020-12-17 08:10 | DSES ---
DISCHARGE SUMMARY DATE OF ADMISSION: 12/14/2020 DATE OF DISCHARGE: 12/16/2020 ADMITTING DIAGNOSIS: Right renal neoplasm. DISCHARGE DIAGNOSIS: Right renal cell carcinoma. ADMITTING PHYSICIAN: William Mccord MD. DISCHARGE PHYSICIAN: William Mccord MD. PROCEDURES PERFORMED: Right robotic assisted laparoscopic radical nephrectomy on 12/14/2020. HISTORY OF PRESENT ILLNESS: This is a 70-year-old female who presented to the hospital to undergo the above listed surgery. She was admitted to the hospital post-operatively. HOSPITAL COURSE: The patient was admitted to the hospital after undergoing a right robotic radical nephrectomy on 12/14/2020. On post-operative day 1 she began ambulating and had no difficulty with this. We removed her Jaime catheter and she had no difficulty voiding. She had excellent urine output. Of note her lab work on post-operative day 1 was notable for a hemoglobin level of 11.3 and her creatinine went up to 1.7 from 1.25 immediately post-operatively. Due to the rise in her creatinine to 1.7 the decision was made to not discharge her on post-operative day 1. By post-operative day 2 her pain was even better controlled and she was ambulating better. She was tolerating a regular diet. Her hemoglobin level on post-operative day 2 was stable at 12.3. Her serum creatinine had started trending down to 1.5. She continued to have excellent urine output. Since the patient was doing well she was deemed ready for discharge home on post-operative day 2. The plan will be to have her follow up in the urology clinic to discuss pathology results and for a post-operative check in approximately 1-2 weeks.
== END 2020-12-16 10:45 | disposition home or self-care (01) | DRG 658 ==
LOC: M OR 06:15 → M MS5PR 14:45
PROVIDERS: ADMIT Urology; ATTEND Urology
PROC: 8E0W4CZ Robotic Assisted Procedure of Trunk Region, Percutaneous Endoscopic Approach (ICD-10-PCS; 2020-12-14)
PROC: 0TT04ZZ Resection of Right Kidney, Percutaneous Endoscopic Approach (ICD-10-PCS; principal; 2020-12-14 07:30)
DX: C64.1 Malignant neoplasm of right kidney, except renal pelvis (principal); Z79.899 Other long term (current) drug therapy; Z79.4 Long term (current) use of insulin; E11.9 Type 2 diabetes mellitus without complications; E78.5 Hyperlipidemia, unspecified

== ENCOUNTER → 2020-12-21 | Outpatient (CLI) | payer MEDICARE ==
[~2020-12-21] MED LIST changes: +DOK1CAP7 PO; -LIDOCAINE 1% MDV 20ML VIAL SQ PRN; -LR 1,000 ML IV ONE; +PERCOCET PO; -ceFAZolin SOD 2 GM in IV 1 EA IV ONE
[2020-12-21 16:24] LABS: HEMATOCRIT 39.6 % (36.0-47.0); HEMOGLOBIN 12.8 g/dl (12.0-15.5); MEAN CORPUSCULAR HEMOGLOBIN 28.8 pg (27.0-33.0); MEAN CORPUSCULAR HGB CONC 32.3 g/dl (32.0-36.5); PLATELET COUNT, AUTOMATED 264 10^3/uL (150-450); RED BLOOD COUNT 4.45 10^6/uL (4.00-5.40); WHITE BLOOD COUNT 10.5 10^3/uL (4.0-10.0)
[2020-12-21 16:54] LABS: CALCIUM LEVEL 9.2 MG/DL (8.8-10.2); CREATININE FOR GFR 1.39 MG/DL (0.55-1.30); GLOMERULAR FILTRATION RATE 40.1 (>45); POTASSIUM SERUM 4.2 MEQ/L (3.5-5.1)
== END ==
LOC: M WUC 12:07
PROVIDERS: ATTEND Urology
DX: C64.1 Malignant neoplasm of right kidney, except renal pelvis (principal); Z90.5 Acquired absence of kidney

== ENCOUNTER → 2020-12-28 | Outpatient (REF) | payer MEDICARE ==
[2020-12-28 13:33] LABS: HEMATOCRIT 42.1 % (36.0-47.0); HEMOGLOBIN 13.7 g/dl (12.0-15.5); MEAN CORPUSCULAR HEMOGLOBIN 29.1 pg (27.0-33.0); MEAN CORPUSCULAR HGB CONC 32.5 g/dl (32.0-36.5); MEAN CORPUSCULAR VOLUME 89.6 fl (80.0-96.0); PLATELET COUNT, AUTOMATED 315 10^3/uL (150-450); WHITE BLOOD COUNT 6.6 10^3/uL (4.0-10.0)
[2020-12-28 13:56] LABS: ALBUMIN 3.4 GM/DL (3.2-5.2); BILIRUBIN,TOTAL 0.2 MG/DL (0.2-1.0); CALCIUM LEVEL 9.4 MG/DL (8.8-10.2); CHOLESTEROL RISK RATIO 2.528 (<5); CREATININE FOR GFR 1.35 MG/DL (0.55-1.30); GLOMERULAR FILTRATION RATE 41.5 (>45); POTASSIUM SERUM 5.1 MEQ/L (3.5-5.1); TOTAL PROTEIN 6.7 GM/DL (6.4-8.2)
[2020-12-28 13:59] LABS: HEMOGLOBIN A1c 6.4 %
[2020-12-28 14:05] LABS: MALB URINE SIEMENS 7.1 MG/L; MAU/CREAT RATIO 5.8 MCG/MG (0.0-30.0)
== END ==
LOC: M SFHCADAM 09:32
PROVIDERS: ATTEND Family Medicine
DX: J20.9 Acute bronchitis, unspecified (principal); E11.9 Type 2 diabetes mellitus without complications; E78.5 Hyperlipidemia, unspecified

== ENCOUNTER → 2021-01-16 | Outpatient (CLI) | payer MEDICARE | LOC: M LABSMTC 10:55 | PROVIDERS: ATTEND Anesthesiology | DX: Z01.812 Encounter for preprocedural laboratory examination (principal); Z20.822 Contact with and (suspected) exposure to COVID-19 ==

== ENCOUNTER 2021-01-21 07:36 | Day surgery (SDC) | payer MEDICARE ==
[~2021-01-21] VITALS: Ht 165.1 cm; Wt 114.8 kg
[~2021-01-21 07:36] MED LIST changes: +NS 1,000 ML IV ONE
[2021-01-21] MEDS ORDERED: propofoL 200 MG/20 ML VIAL As Ordered ONE ×2 (08:57→09:28)
--- NOTE | 2021-01-21 09:51 | ROOR ---
Patient Name: Kay Mendoza Procedure Date: 01/21/2021 8:58 AM Date of : 1950 Age: 70 Room: [facility] Gender: Female Note Status: Finalized Procedure: Colonoscopy Indications: High risk colon cancer surveillance: Personal history of colon cancer Providers: Wagner Hawthorne MD Referring MD: Elbert Stone MD Requesting Provider: Medicines: Monitored Anesthesia Care Complications: No immediate complications. Procedure: Pre-Anesthesia Assessment: - Prior to the procedure, a History and Physical was performed, and patient medications and allergies were reviewed. The patient is competent. The risks and benefits of the procedure and the sedation options and risks were discussed with the patient. All questions were answered and informed consent was obtained. Patient identification and proposed procedure were verified by the physician, the nurse and the anesthesiologist in the procedure room. Mental Status Examination: alert and oriented. Airway Examination: normal oropharyngeal airway and neck mobility. Respiratory Examination: clear to auscultation. CV Examination: normal. Prophylactic Antibiotics: The patient does not require prophylactic antibiotics. Prior Anticoagulants: The patient has taken no previous anticoagulant or antiplatelet agents. ASA Grade Assessment: II - A patient with mild systemic disease. After reviewing the risks and benefits, the patient was deemed in satisfactory condition to undergo the procedure. The anesthesia plan was to use monitored anesthesia care (MAC). Immediately prior to administration of medications, the patient was re-assessed for adequacy to receive sedatives. The heart rate, respiratory rate, oxygen saturations, blood pressure, adequacy of pulmonary ventilation, and response to care were monitored throughout the procedure. The physical status of the patient was re-assessed after the procedure. The Colonoscope was introduced through the anus and advanced to the terminal ileum, with identification of the appendiceal orifice and IC valve. The colonoscopy was performed without difficulty. The patient tolerated the procedure well. The quality of the bowel preparation was good. The terminal ileum, ileocecal valve, appendiceal orifice, and rectum were photographed. Scope insertion time was 3 minutes. Scope withdrawal time was 12 minutes. The total duration of the procedure was 15 minutes. Findings: The perianal and digital rectal examinations were normal. The terminal ileum appeared normal. Two sessile polyps were found in the descending colon. The polyps were 3 to 6 mm in size. These polyps were removed with a hot snare. Resection and retrieval were complete. Verification of patient identification for the specimen was done by the physician and nurse using the patient's name, date and medical record number. Estimated blood loss was minimal. Multiple small-mouthed diverticula were found in the sigmoid colon. There was no evidence of diverticular bleeding. Normal mucosa was found in the sigmoid colon. Area was tattooed with an injection of Spot (carbon black). Non-bleeding external and internal hemorrhoids were found during retroflexion. The hemorrhoids were medium-sized. Impression: - The examined portion of the ileum was normal. - Two 3 to 6 mm polyps in the descending colon, removed with a hot snare. Resected and retrieved. - Moderate diverticulosis in the sigmoid colon. There was no evidence of diverticular bleeding. - Normal mucosa in the sigmoid colon. Tattooed. - Non-bleeding external and internal hemorrhoids. Recommendation: - Patient has a contact number available for emergencies. The signs and symptoms of potential delayed complications were discussed with the patient. Return to normal activities tomorrow. Written discharge instructions were provided to the patient. - High fiber diet. - Continue present medications. - Await pathology results. - Repeat colonoscopy in 1 year for surveillance based on pathology results. - Telephone GI clinic for pathology results in 2 weeks. - Return to GI clinic in [facility] (address [address], [address], [place], [address]) in 4 -- 6 weeks. Please call GI clinic @ [phone] for apppointment date and time. - Return to primary care physician. Procedure Code(s): --- Professional --- 75701, Colonoscopy, flexible; with removal of tumor(s), polyp(s), or other lesion(s) by snare technique 69580, Colonoscopy, flexible; with directed submucosal injection(s), any substance Diagnosis Code(s): --- Professional --- Z85.038, Personal history of other malignant neoplasm of large intestine K64.8, Other hemorrhoids K63.5, Polyp of colon K57.30, Diverticulosis of large intestine without perforation or abscess without bleeding CPT copyright 2019 [employer]. All rights reserved. The codes documented in this report are preliminary and upon clinical coder review may be revised to meet current compliance requirements. Wagner Hawthorne MD Wagner Hawthorne MD 01/21/2021 9:51:37 AM Electronically signed by Wagner Hawthorne MD Number of Addenda: 0 Note Initiated On: 01/21/2021 8:58 AM Estimated Blood Loss: Estimated blood loss was minimal.
[2021-01-21 10:01] VITALS: BP 140/89
== END 2021-01-21 10:05 | disposition home or self-care (01) ==
LOC: M OPP 07:36
PROVIDERS: ATTEND Internal Medicine Gastroenterology
DX: K63.5 Polyp of colon (principal); K57.30 Diverticulosis of large intestine without perforation or abscess without bleeding; K64.8 Other hemorrhoids; Z85.038 Personal history of other malignant neoplasm of large intestine; Z08 Encounter for follow-up examination after completed treatment for malignant neoplasm; Z79.82 Long term (current) use of aspirin; Z79.899 Other long term (current) drug therapy; Z88.8 Allergy status to other drugs, medicaments and biological substances

== ENCOUNTER → 2021-02-09 | Outpatient (CLI) | payer MEDICARE ==
[~2021-02-09] MED LIST changes: -NS 1,000 ML IV ONE
[2021-02-09 16:39] LABS: BLOOD UREA NITROGEN 18 MG/DL (7-18); CREATININE FOR GFR 1.28 MG/DL (0.55-1.30); GLOMERULAR FILTRATION RATE 44.1 (>45)
== END ==
LOC: M WUC 11:23
PROVIDERS: ATTEND Internal Medicine Gastroenterology
DX: C18.7 Malignant neoplasm of sigmoid colon (principal); R93.3 Abnormal findings on diagnostic imaging of other parts of digestive tract

== ENCOUNTER → 2021-02-14 | Outpatient (CLI) | payer MEDICARE ==
--- NOTE | 2021-02-15 10:07 | REP ---
INDICATION: MALIGNANT NEOPLASM OF SIGMOID COLON C18.7. COMPARISON: No prior PET CTs for comparison. Previous CT scan of the chest, abdomen, and pelvis 09/20/2020 was reviewed TECHNIQUE: After the intravenous administration of 14.79 mCi of FDG 18 triplane whole-body PET-CT was performed from the skull base to the mid thigh FINDINGS: Tiny foci of hypermetabolic activity are seen in the posterior mediastinum but adjacent to or possibly within the esophagus and in the area of the CT finding and previously reported esophageal wall thickening. This area cannot be effectively evaluated with PET. The maximal SUV value of 1 of these foci is 6.32. None of the tiny pulmonary nodules seen on the prior chest CT are hypermetabolic. No other areas of abnormal hypermetabolic activity are seen in the neck, chest, abdomen, or pelvis. IMPRESSION: Hypermetabolic activity seen only in the esophageal/paraesophageal region as described above. Evaluating this area with PET is a known pit fall of PET. Further evaluation with EGD should be considered. None of the tiny pulmonary nodule seen on the prior CT scan are hypermetabolic, however, due to their small size I would recommend a follow-up exam. <Electronically signed by Pb Andrew > 02/15/21 [id number]
== END ==
LOC: M PLARAD 11:10
PROVIDERS: ATTEND Internal Medicine Gastroenterology
DX: C18.7 Malignant neoplasm of sigmoid colon (principal); R91.1 Solitary pulmonary nodule
CPT/HCPCS: 78815; A9552

== ENCOUNTER → 2021-02-20 | Outpatient (CLI) | payer MEDICARE | LOC: M LABSMTC 09:09 | PROVIDERS: ATTEND Anesthesiology | DX: Z11.52 Encounter for screening for COVID-19 (principal) ==

== ENCOUNTER 2021-02-25 07:50 | Day surgery (SDC) | payer MEDICARE ==
[~2021-02-25] VITALS: Ht 167.6 cm; Wt 115.7 kg
[~2021-02-25 07:50] MED LIST changes: +LIDOCAINE 2% 100MG/5ML SDV (FOR ANES.) As Ordered ONE; +NS 1,000 ML IV ONE; +fentaNYL 100 MCG/2 ML INJECTION (J3010) As Ordered ONE; +propofoL 500 MG/50 ML VIAL As Ordered ONE
--- NOTE | 2021-02-25 09:24 | ROOR ---
Patient Name: Kay Mendoza Procedure Date: 02/25/2021 8:48 AM Date of : 1950 Age: 70 Room: [facility] Gender: Female Note Status: Finalized Procedure: Upper GI endoscopy Indications: Abnormal CT of the GI tract Providers: Wagner Hawthorne MD Referring MD: Elbert Stone MD Requesting Provider: Medicines: Monitored Anesthesia Care Complications: No immediate complications. Procedure: Pre-Anesthesia Assessment: - Prior to the procedure, a History and Physical was performed, and patient medications and allergies were reviewed. The patient is competent. The risks and benefits of the procedure and the sedation options and risks were discussed with the patient. All questions were answered and informed consent was obtained. Patient identification and proposed procedure were verified by the physician, the nurse and the anesthesiologist in the procedure room. Mental Status Examination: alert and oriented. Airway Examination: normal oropharyngeal airway and neck mobility. Respiratory Examination: clear to auscultation. CV Examination: normal. Prophylactic Antibiotics: The patient does not require prophylactic antibiotics. Prior Anticoagulants: The patient has taken no previous anticoagulant or antiplatelet agents. ASA Grade Assessment: II - A patient with mild systemic disease. After reviewing the risks and benefits, the patient was deemed in satisfactory condition to undergo the procedure. The anesthesia plan was to use monitored anesthesia care (MAC). Immediately prior to administration of medications, the patient was re-assessed for adequacy to receive sedatives. The heart rate, respiratory rate, oxygen saturations, blood pressure, adequacy of pulmonary ventilation, and response to care were monitored throughout the procedure. The physical status of the patient was re-assessed after the procedure. The Endoscope was introduced through the mouth, and advanced to the second part of duodenum. The upper GI endoscopy was accomplished without difficulty. The patient tolerated the procedure well. Findings: The Z-line was regular and was found 40 cm from the incisors. Normal mucosa was found in the entire esophagus. Multiple biopsies were obtained in the distal esophagus with cold forceps for histology. Verification of patient identification for the specimen was done by the physician and nurse using the patient's name, date and medical record number. Estimated blood loss was minimal. Noted some resistance to passage of scope through Lower esophageal sphincter, suspect motility disorder. Scattered mild inflammation characterized by congestion (edema), erythema and granularity was found in the gastric antrum. Biopsies were taken with a cold forceps for Helicobacter pylori testing. The duodenal bulb, second portion of the duodenum and third portion of the duodenum were normal. Biopsies for histology were taken with a cold forceps for evaluation of celiac disease. Impression: - Z-line regular, 40 cm from the incisors. - Normal mucosa was found in the entire esophagus. - Gastritis. Biopsied. - Normal duodenal bulb, second portion of the duodenum and third portion of the duodenum. Biopsied. - Multiple biopsies were obtained in the distal esophagus. Recommendation: - Patient has a contact number available for emergencies. The signs and symptoms of potential delayed complications were discussed with the patient. Return to normal activities tomorrow. Written discharge instructions were provided to the patient. - High fiber diet. - Continue present medications. - Await pathology results. - Observe patient's clinical course. - Perform routine esophageal manometry if symptoms persist. - Telephone GI clinic for pathology results in 2 weeks. - Return to primary care physician. Procedure Code(s): --- Professional --- 91332, Esophagogastroduodenoscopy, flexible, transoral; with biopsy, single or multiple Diagnosis Code(s): --- Professional --- K29.70, Gastritis, unspecified, without bleeding R93.3, Abnormal findings on diagnostic imaging of other parts of digestive tract CPT copyright 2019 [employer]. All rights reserved. The codes documented in this report are preliminary and upon engineer intern review may be revised to meet current compliance requirements. Wagner Hawthorne MD Wagner Hawthorne MD 02/25/2021 9:24:06 AM Electronically signed by Wagner Hawthorne MD Number of Addenda: 0 Note Initiated On: 02/25/2021 8:48 AM Estimated Blood Loss: Estimated blood loss was minimal.
[2021-02-25 09:30] VITALS: BP 131/71
[2021-02-28] MEDS ORDERED: COVI100V IM (13:02)
== END 2021-02-25 09:33 | disposition home or self-care (01) ==
LOC: M OPP 07:50
PROVIDERS: ATTEND Internal Medicine Gastroenterology
DX: K29.70 Gastritis, unspecified, without bleeding (principal); R93.3 Abnormal findings on diagnostic imaging of other parts of digestive tract; Z85.038 Personal history of other malignant neoplasm of large intestine; Z85.828 Personal history of other malignant neoplasm of skin; Z79.4 Long term (current) use of insulin; Z79.899 Other long term (current) drug therapy; Z88.8 Allergy status to other drugs, medicaments and biological substances
CPT/HCPCS: 43239; 88305; J3010

== ENCOUNTER → 2021-03-14 | Outpatient (REF) | payer MEDICARE ==
[~2021-03-14] MED LIST changes: +COVI100V IM; -LIDOCAINE 2% 100MG/5ML SDV (FOR ANES.) As Ordered ONE; -NS 1,000 ML IV ONE; -fentaNYL 100 MCG/2 ML INJECTION (J3010) As Ordered ONE; -propofoL 500 MG/50 ML VIAL As Ordered ONE
[2021-03-14 13:24] LABS: CALCIUM LEVEL 9.1 MG/DL (8.8-10.2); CREATININE FOR GFR 1.35 MG/DL (0.55-1.30); GLOMERULAR FILTRATION RATE 41.5 (>45); POTASSIUM SERUM 4.9 MEQ/L (3.5-5.1)
[2021-03-14 13:25] LABS: HEMOGLOBIN A1c 6.8 %
== END ==
LOC: M SFHCADAM 10:31
PROVIDERS: ATTEND Family Medicine
DX: E11.9 Type 2 diabetes mellitus without complications (principal)

== ENCOUNTER → 2021-04-18 | Outpatient (CLI) | payer MEDICARE ==
[~2021-04-18] MED LIST changes: +DOK1CAP4 PO; -DOK1CAP7 PO; +ISOVUE-370 76% 100ML VIAL As Ordered ONE
== END ==
LOC: M RAD 10:32
PROVIDERS: ATTEND Internal Medicine Medical Oncology
DX: C18.9 Malignant neoplasm of colon, unspecified (principal); R91.8 Other nonspecific abnormal finding of lung field
CPT/HCPCS: 71260; Q9967

== ENCOUNTER → 2021-07-20 | Outpatient (CLI) | payer MEDICARE ==
[~2021-07-20] MED LIST changes: -ISOVUE-370 76% 100ML VIAL As Ordered ONE
[2021-07-20 16:14] LABS: CALCIUM LEVEL 9.1 MG/DL (8.8-10.2); CREATININE FOR GFR 1.45 MG/DL (0.55-1.30); GLOMERULAR FILTRATION RATE 38.1 (>45); POTASSIUM SERUM 4.5 MEQ/L (3.5-5.1)
== END ==
LOC: M WUC 11:03
PROVIDERS: ATTEND Urology
DX: C64.1 Malignant neoplasm of right kidney, except renal pelvis (principal); Z90.5 Acquired absence of kidney

== ENCOUNTER → 2021-07-21 | Outpatient (REF) | payer MEDICARE | LOC: M LAB REF 17:16 | PROVIDERS: ATTEND Internal Medicine Nephrology | DX: N18.32 Chronic kidney disease, stage 3b (principal) ==

== ENCOUNTER → 2021-07-25 | Outpatient (CLI) | payer MEDICARE ==
[~2021-07-25] MED LIST changes: +ISOVUE-370 76% 100ML VIAL As Ordered ONE; +MAGNESIUM SULFATE 1GM/100ML D5W BAG (10MG/ML) As Ordered ONE
--- NOTE | 2021-07-25 17:25 | REP ---
INDICATION: RENAL CELL CA, S/P NEPHRECTOMY - XRAY AFTER. COMPARISON: 09/20/2020 TECHNIQUE: Standard helical technique after the intravenous administration of 100 cc Isovue 370 FINDINGS: The patient is status post right nephrectomy since the last exam. The lung bases are clear The liver, gallbladder, spleen, pancreas, adrenal glands, and left kidney are unchanged. There is an unchanged Bosniak class 1 left renal cyst. There is an unchanged tiny left renal cortical cyst. The abdominal aorta and para-aortic regions are unchanged. No adenopathy has developed. There is no significant change in appearance of the bowel loops or the mesenteries. There is a partially imaged small nodule in the right mesentery which is completely stable. There is no free fluid or free air. Bone window technique throughout the examination shows bilateral L5 spondylolysis. There is no significant change in appearance of the imaged osseous structures. IMPRESSION: The patient is status post right nephrectomy since the last exam. There are no other significant changes compared to the prior exam with findings as described above. <Electronically signed by Pb Andrew > 07/25/21 [id number]
--- NOTE | 2021-07-25 17:29 | REP ---
INDICATION: RENAL CELL CA, S/P NEPHRECTOMY - CT FIRST. COMPARISON: 12/06/2020 the latest prior TECHNIQUE: PA and lateral FINDINGS: There is cardiomegaly status quo. The lung marquis are clear and stable. No acute patchy parenchymal opacities or pleural effusions have developed. There is no significant change in the osseous structures. IMPRESSION: Cardiomegaly without evidence of acute cardiopulmonary disease. <Electronically signed by Pb Andrew > 07/25/21 [id number]
== END ==
LOC: M RAD 16:06
PROVIDERS: ATTEND Urology
DX: C64.1 Malignant neoplasm of right kidney, except renal pelvis (principal); Z90.5 Acquired absence of kidney
CPT/HCPCS: 71046; 74160; Q9967

== ENCOUNTER → 2021-09-21 | Outpatient (REF) | payer MEDICARE ==
[~2021-09-21] MED LIST changes: -ISOVUE-370 76% 100ML VIAL As Ordered ONE; -MAGNESIUM SULFATE 1GM/100ML D5W BAG (10MG/ML) As Ordered ONE
== END ==
LOC: M SFHCADAM 10:57
PROVIDERS: ATTEND Family Medicine
DX: C64.1 Malignant neoplasm of right kidney, except renal pelvis (principal); N18.31 Chronic kidney disease, stage 3a; E11.9 Type 2 diabetes mellitus without complications; E78.5 Hyperlipidemia, unspecified; Z53.9 Procedure and treatment not carried out, unspecified reason

== ENCOUNTER → 2021-09-21 | Outpatient (CLI) | payer MEDICARE | LOC: M LABSMTC 10:43 | PROVIDERS: ATTEND Anesthesiology | DX: Z01.818 Encounter for other preprocedural examination (principal); Z11.52 Encounter for screening for COVID-19 ==

== ENCOUNTER → 2021-09-22 | Outpatient (CLI) | payer MEDICARE ==
[2021-09-22 12:26] LABS: HEMATOCRIT 39.2 % (36.0-47.0); HEMOGLOBIN 12.5 g/dl (12.0-15.5); MEAN CORPUSCULAR HEMOGLOBIN 29.2 pg (27.0-33.0); MEAN CORPUSCULAR HGB CONC 31.9 g/dl (32.0-36.5); MEAN CORPUSCULAR VOLUME 91.6 fl (80.0-96.0); PLATELET COUNT, AUTOMATED 272 10^3/uL (150-450); RED BLOOD COUNT 4.28 10^6/uL (4.00-5.40)
[2021-09-22 12:53] LABS: CALCIUM LEVEL 9.4 MG/DL (8.8-10.2); CREATININE FOR GFR 1.39 MG/DL (0.55-1.30); POTASSIUM SERUM 4.5 MEQ/L (3.5-5.1)
[2021-09-22 12:54] LABS: ALBUMIN 3.5 GM/DL (3.2-5.2); BILIRUBIN,TOTAL 0.3 MG/DL (0.2-1.0); CHOLESTEROL RISK RATIO 2.105 (<5); TOTAL PROTEIN 6.5 GM/DL (6.4-8.2)
[2021-09-22 13:16] LABS: HEMOGLOBIN A1c 7.1 %
== END ==
LOC: M WUC 09:54
PROVIDERS: ATTEND Family Medicine
DX: C64.1 Malignant neoplasm of right kidney, except renal pelvis (principal); N18.31 Chronic kidney disease, stage 3a; E11.9 Type 2 diabetes mellitus without complications; E78.5 Hyperlipidemia, unspecified
CPT/HCPCS: 36415; 80053; 80061; 83036; 85027; G0463

== ENCOUNTER 2021-09-26 07:07 | Day surgery (SDC) | payer MEDICARE ==
[~2021-09-26] VITALS: Ht 167.6 cm; Wt 118.8 kg
[~2021-09-26 07:07] MED LIST changes: +NS 1,000 ML IV ONE
[2021-09-26] MEDS ORDERED: propofoL 200 MG/20 ML VIAL As Ordered ONE ×3 (07:57→08:34)
[2021-09-26] MEDS ORDERED: LIDOCAINE 2% 100MG/5ML SDV (FOR ANES.) As Ordered ONE (07:57)
[2021-09-26] MEDS ORDERED: PHENYLephrine 500MCG 5ML (100MCG/ML) SYRINGE As Ordered ONE (08:29)
--- NOTE | 2021-09-26 08:46 | ROOR ---
Patient Name: Kay Mendoza Procedure Date: 09/26/2021 8:03 AM Date of : 1950 Age: 71 Room: [facility] Gender: Female Note Status: Finalized Procedure: Colonoscopy Indications: High risk colon cancer surveillance: Personal history of colon cancer Providers: Wagner Hawthorne MD Referring MD: Elbert Stone MD Requesting Provider: Medicines: Monitored Anesthesia Care Complications: No immediate complications. Procedure: Pre-Anesthesia Assessment: - Prior to the procedure, a History and Physical was performed, and patient medications and allergies were reviewed. The patient is competent. The risks and benefits of the procedure and the sedation options and risks were discussed with the patient. All questions were answered and informed consent was obtained. Patient identification and proposed procedure were verified by the physician, the nurse and the anesthesiologist in the procedure room. Mental Status Examination: alert and oriented. Airway Examination: normal oropharyngeal airway and neck mobility. Respiratory Examination: clear to auscultation. CV Examination: normal. Prophylactic Antibiotics: The patient does not require prophylactic antibiotics. Prior Anticoagulants: The patient has taken no previous anticoagulant or antiplatelet agents. ASA Grade Assessment: II - A patient with mild systemic disease. After reviewing the risks and benefits, the patient was deemed in satisfactory condition to undergo the procedure. The anesthesia plan was to use monitored anesthesia care (MAC). Immediately prior to administration of medications, the patient was re-assessed for adequacy to receive sedatives. The heart rate, respiratory rate, oxygen saturations, blood pressure, adequacy of pulmonary ventilation, and response to care were monitored throughout the procedure. The physical status of the patient was re-assessed after the procedure. The Colonoscope was introduced through the anus and advanced to the terminal ileum, with identification of the appendiceal orifice and IC valve. The colonoscopy was performed without difficulty. The patient tolerated the procedure well. The quality of the bowel preparation was good. The terminal ileum, ileocecal valve, appendiceal orifice, and rectum were photographed. Scope insertion time was 2 minutes. Scope withdrawal time was 8 minutes. The total duration of the procedure was 12 minutes. Findings: The perianal and digital rectal examinations were normal. The terminal ileum appeared normal. Four sessile polyps were found in the transverse colon and ascending colon. The polyps were 3 to 4 mm in size. These polyps were removed with a cold snare. Resection and retrieval were complete. Verification of patient identification for the specimen was done by the physician and nurse using the patient's name, date and medical record number. Estimated blood loss was minimal. A few small-mouthed diverticula were found in the sigmoid colon. There was no evidence of diverticular bleeding. A tattoo was seen in the proximal rectum and in the proximal sigmoid colon. The tattoo site appeared normal. Two biopsies were obtained in the sigmoid colon with cold snare for histology. Non-bleeding external and internal hemorrhoids were found during retroflexion. The hemorrhoids were medium-sized. Impression: - The examined portion of the ileum was normal. - Four 3 to 4 mm polyps in the transverse colon and in the ascending colon, removed with a cold snare. Resected and retrieved. - Moderate diverticulosis in the sigmoid colon. There was no evidence of diverticular bleeding. - A tattoo was seen in the proximal rectum and in the proximal sigmoid colon. The tattoo site appeared normal. - Non-bleeding external and internal hemorrhoids. - Two biopsies were obtained in the sigmoid colon. Recommendation: - Patient has a contact number available for emergencies. The signs and symptoms of potential delayed complications were discussed with the patient. Return to normal activities tomorrow. Written discharge instructions were provided to the patient. - High fiber diet. - Continue present medications. - Await pathology results. - Repeat colonoscopy in 3 years for surveillance based on pathology results. - Telephone GI clinic for pathology results in 2 weeks. - Return to GI clinic if persistent symptoms or new symptoms. - Return to primary care physician. Procedure Code(s): --- Professional --- 36273, Colonoscopy, flexible; with removal of tumor(s), polyp(s), or other lesion(s) by snare technique Diagnosis Code(s): --- Professional --- Z85.038, Personal history of other malignant neoplasm of large intestine K64.8, Other hemorrhoids K63.5, Polyp of colon K57.30, Diverticulosis of large intestine without perforation or abscess without bleeding CPT copyright 2019 [employer]. All rights reserved. The codes documented in this report are preliminary and upon reconstructive dentist review may be revised to meet current compliance requirements. Wagner Hawthorne MD Wagner Hawthorne MD 09/26/2021 8:46:04 AM Electronically signed by Wagner Hawthorne MD Number of Addenda: 0 Note Initiated On: 09/26/2021 8:03 AM Estimated Blood Loss: Estimated blood loss was minimal.
[2021-09-26 09:00] VITALS: BP 142/84
== END 2021-09-26 09:09 | disposition home or self-care (01) ==
LOC: M OPP 07:07
PROVIDERS: ATTEND Internal Medicine Gastroenterology
DX: K63.5 Polyp of colon (principal); K57.30 Diverticulosis of large intestine without perforation or abscess without bleeding; K64.8 Other hemorrhoids; Z85.038 Personal history of other malignant neoplasm of large intestine; Z86.010 Personal history of colon polyps; Z08 Encounter for follow-up examination after completed treatment for malignant neoplasm; Z85.528 Personal history of other malignant neoplasm of kidney; Z79.4 Long term (current) use of insulin; Z79.82 Long term (current) use of aspirin; Z79.899 Other long term (current) drug therapy; Z88.8 Allergy status to other drugs, medicaments and biological substances
CPT/HCPCS: 45385; 88305; J2370

== ENCOUNTER → 2021-11-30 | Outpatient (CLI) | payer MEDICARE ==
[~2021-11-30] MED LIST changes: -NS 1,000 ML IV ONE
== END ==
LOC: M ADAMS 14:22
PROVIDERS: ATTEND Family Medicine
DX: M43.16 Spondylolisthesis, lumbar region (principal); M51.37 Other intervertebral disc degeneration, lumbosacral region; M54.50 Low back pain, unspecified; S76.911A Strain of unspecified muscles, fascia and tendons at thigh level, right thigh, initial encounter; X58.XXXA Exposure to other specified factors, initial encounter; Y92.9 Unspecified place or not applicable; Y99.9 Unspecified external cause status

== ENCOUNTER → 2021-12-09 | Outpatient (CLI) | payer MEDICARE | LOC: M SOG 10:23 | PROVIDERS: ATTEND Orthopaedic Surgery Adult Reconstructive Orthopaedic Surgery | DX: M25.551 Pain in right hip (principal); M16.0 Bilateral primary osteoarthritis of hip ==

== ENCOUNTER → 2021-12-21 | Outpatient (CLI) | payer MEDICARE ==
[~2021-12-21] MED LIST changes: +BUPIVACAINE HCL 0.5% 30 ML VIAL As Ordered ONE; +ISOVUE-300 61% 50ML VIAL As Ordered ONE; +LIDOCAINE 1% MDV 20ML VIAL As Ordered ONE; +methylPREDNISolone 80MG/ML SUSP 1ML VIAL (J1040) As Ordered ONE
== END ==
LOC: M RADPRO 12:30
PROVIDERS: ATTEND Orthopaedic Surgery Adult Reconstructive Orthopaedic Surgery
DX: M16.11 Unilateral primary osteoarthritis, right hip (principal)
CPT/HCPCS: 20610; 77002; J1040; Q9967

== ENCOUNTER → 2022-05-22 | Outpatient (REF) | payer MEDICARE ==
[~2022-05-22] MED LIST changes: -BUPIVACAINE HCL 0.5% 30 ML VIAL As Ordered ONE; -ISOVUE-300 61% 50ML VIAL As Ordered ONE; -LIDOCAINE 1% MDV 20ML VIAL As Ordered ONE; -methylPREDNISolone 80MG/ML SUSP 1ML VIAL (J1040) As Ordered ONE
[2022-05-22 14:15] LABS: CALCIUM LEVEL 9.5 MG/DL (8.8-10.2); CREATININE FOR GFR 1.25 MG/DL (0.55-1.30); GLOMERULAR FILTRATION RATE 45.2 (>45); POTASSIUM SERUM 4.2 MEQ/L (3.5-5.1)
[2022-05-22 14:52] LABS: HEMOGLOBIN A1c 7.3 %
== END ==
LOC: M SFHCADAM 09:04
PROVIDERS: ATTEND Family Medicine
DX: E11.9 Type 2 diabetes mellitus without complications (principal)

== ENCOUNTER → 2022-06-29 | Outpatient (CLI) | payer MEDICARE ==
[~2022-06-29] MED LIST changes: +BUPIVACAINE HCL 0.5% 30ML VIAL As Ordered ONE; +ISOVUE-300 61% 50ML VIAL As Ordered ONE; +LIDOCAINE 1% MDV 20ML VIAL As Ordered ONE; +methylPREDNISolone 80MG/ML SUSP 1ML VIAL (J1040) As Ordered ONE
== END ==
LOC: M RAD 13:03
PROVIDERS: ATTEND Orthopaedic Surgery Adult Reconstructive Orthopaedic Surgery
DX: M25.851 Other specified joint disorders, right hip (principal)
CPT/HCPCS: 20610; 76000; J1040; Q9967

== ENCOUNTER → 2022-07-27 | Outpatient (REF) | payer MEDICARE ==
[~2022-07-27] MED LIST changes: -BUPIVACAINE HCL 0.5% 30ML VIAL As Ordered ONE; -ISOVUE-300 61% 50ML VIAL As Ordered ONE; -LIDOCAINE 1% MDV 20ML VIAL As Ordered ONE; -methylPREDNISolone 80MG/ML SUSP 1ML VIAL (J1040) As Ordered ONE
[2022-07-27 17:39] LABS: CALCIUM LEVEL 8.9 MG/DL (8.8-10.2); CREATININE FOR GFR 1.43 MG/DL (0.55-1.30); GLOMERULAR FILTRATION RATE 38.6 (>39); POTASSIUM SERUM 4.1 MEQ/L (3.5-5.1)
== END ==
LOC: M WUC 16:33
PROVIDERS: ATTEND Urology
DX: C64.1 Malignant neoplasm of right kidney, except renal pelvis (principal); Z90.5 Acquired absence of kidney

== ENCOUNTER → 2022-07-31 | Outpatient (CLI) | payer MEDICARE ==
[~2022-07-31] MED LIST changes: +ISOVUE-370 76% 100ML VIAL As Ordered ONE
== END ==
LOC: M RAD 08:38
PROVIDERS: ATTEND Urology
DX: C64.1 Malignant neoplasm of right kidney, except renal pelvis (principal)
CPT/HCPCS: 74170; Q9967

== ENCOUNTER → 2023-01-08 | Outpatient (REF) | payer MEDICARE ==
[~2023-01-08] MED LIST changes: -ISOVUE-370 76% 100ML VIAL As Ordered ONE
[2023-01-08 13:08] LABS: HEMATOCRIT 41.2 % (36.0-47.0); MEAN CORPUSCULAR HGB CONC 31.6 g/dl (32.0-36.5); MEAN CORPUSCULAR VOLUME 91.8 fl (80.0-96.0); PLATELET COUNT, AUTOMATED 262 10^3/uL (150-450); RED BLOOD COUNT 4.49 10^6/uL (4.00-5.40)
[2023-01-08 13:28] LABS: ALBUMIN 3.5 G/DL (3.2-5.2); BILIRUBIN,TOTAL 0.3 MG/DL (0.3-1.2); CHOLESTEROL RISK RATIO 2.07 (<5); CREATININE FOR GFR 1.17 MG/DL (0.55-1.30); GLOMERULAR FILTRATION RATE 48.7 (>39); HDL CHOLESTEROL 59.7 MG/DL (>40); NON-HDL-C 64.3 MG/DL; POTASSIUM SERUM 4.5 MMOL/L (3.5-5.1)
[2023-01-08 13:35] LABS: CREATININE, URINE 187.5 MG/DL
[2023-01-08 13:36] LABS: MAU/CREAT RATIO 15.4 MCG/MG (0.0-30.0)
[2023-01-08 14:37] LABS: HEMOGLOBIN A1c 7.2 % (4.0-6.0)
[2023-01-08 18:48] LABS: LDL CHOLESTEROL 44.1 MG/DL (<100); TOTAL PROTEIN 6.3 G/DL (5.7-8.2)
== END ==
LOC: M SFHCADAM 10:50
PROVIDERS: ATTEND Family Medicine
DX: E11.9 Type 2 diabetes mellitus without complications (principal); N18.31 Chronic kidney disease, stage 3a; E78.5 Hyperlipidemia, unspecified

== ENCOUNTER → 2023-02-08 | Outpatient (REF) | payer MEDICARE ==
[2023-02-08 14:06] LABS: CREATININE FOR GFR 1.32 MG/DL (0.55-1.30); GLOMERULAR FILTRATION RATE 42.4 (>39); POTASSIUM SERUM 4.4 MMOL/L (3.5-5.1)
== END ==
LOC: M SFHCADAM 10:18
PROVIDERS: ATTEND Family Medicine
DX: E11.9 Type 2 diabetes mellitus without complications (principal)

== ENCOUNTER → 2023-04-23 | Outpatient (REF) | payer MEDICARE ==
[2023-04-23 19:02] LABS: HEMOGLOBIN A1c 7.8 % (4.0-6.0)
[2023-04-23 19:09] LABS: CALCIUM LEVEL 8.9 MG/DL (8.3-10.6); CREATININE FOR GFR 1.1 MG/DL (0.55-1.30); GLOMERULAR FILTRATION RATE 52.3 (>39); POTASSIUM SERUM 4.1 MMOL/L (3.5-5.1)
== END ==
LOC: M SFHCADAM 09:35
PROVIDERS: ATTEND Family Medicine
DX: E11.9 Type 2 diabetes mellitus without complications (principal)

== ENCOUNTER → 2023-05-31 | Outpatient (CLI) | payer MEDICARE | LOC: M SOG 08:02 | PROVIDERS: ATTEND Orthopaedic Surgery | DX: M25.551 Pain in right hip (principal); Z53.9 Procedure and treatment not carried out, unspecified reason ==

== ENCOUNTER → 2023-07-23 | Outpatient (REF) | payer MEDICARE ==
[2023-07-23 13:57] LABS: CALCIUM LEVEL 9.2 MG/DL (8.3-10.6); CREATININE FOR GFR 1.14 MG/DL (0.55-1.30); POTASSIUM SERUM 4.6 MMOL/L (3.5-5.1)
== END ==
LOC: M WUC 12:10
PROVIDERS: ATTEND Urology
DX: C64.1 Malignant neoplasm of right kidney, except renal pelvis (principal); Z90.5 Acquired absence of kidney

== ENCOUNTER → 2023-09-24 | Outpatient (REF) | payer MEDICARE ==
[2023-09-24 15:03] LABS: CALCIUM LEVEL 9.7 MG/DL (8.3-10.6); CREATININE FOR GFR 1.1 MG/DL (0.55-1.30); GLOMERULAR FILTRATION RATE 52.1 (>39); POTASSIUM SERUM 4.9 MMOL/L (3.5-5.1)
[2023-09-24 15:22] LABS: HEMOGLOBIN A1c 8.1 % (4.0-6.0)
== END ==
LOC: M SFHCADAM 09:54
PROVIDERS: ATTEND Family Medicine
DX: E11.9 Type 2 diabetes mellitus without complications (principal)

== ENCOUNTER → 2024-02-27 | Outpatient (REF) | payer MEDICARE ==
[2024-02-27 15:47] LABS: CALCIUM LEVEL 9.5 MG/DL (8.3-10.6); CREATININE FOR GFR 1.26 MG/DL (0.55-1.30); GLOMERULAR FILTRATION RATE 44.6 (>39); POTASSIUM SERUM 4.8 MMOL/L (3.5-5.1)
== END ==
LOC: M SFHCADAM 09:44
PROVIDERS: ATTEND Family Medicine
DX: C64.1 Malignant neoplasm of right kidney, except renal pelvis (principal); Z90.5 Acquired absence of kidney

== ENCOUNTER → 2024-03-11 | Outpatient (CLI) | payer MEDICARE | LOC: M WHC 09:05 | PROVIDERS: ATTEND Family Medicine | DX: Z12.31 Encounter for screening mammogram for malignant neoplasm of breast (principal); R92.333 Mammographic heterogeneous density, bilateral breasts ==

== ENCOUNTER → 2024-06-18 | Outpatient (REF) | payer MEDICARE ==
[2024-06-18 12:54] LABS: FREE T4 1.01 NG/DL (0.89-1.76); THYROID STIMULATING HORMONE 1.625 uIU/ML (0.55-4.78)
[2024-06-18 12:55] LABS: ALBUMIN 3.6 G/DL (3.2-5.2); BILIRUBIN,TOTAL 0.4 MG/DL (0.3-1.2); CALCIUM LEVEL 9.3 MG/DL (8.3-10.6); CHOLESTEROL RISK RATIO 2.29 (<5); CREATININE FOR GFR 1.19 MG/DL (0.55-1.30); GLOMERULAR FILTRATION RATE 47.6 (>39); HDL CHOLESTEROL 53.6 MG/DL (>40); LDL CHOLESTEROL 48.8 MG/DL (<100); NON-HDL-C 69.4 MG/DL; POTASSIUM SERUM 4.1 MMOL/L (3.5-5.1); TOTAL PROTEIN 6.4 G/DL (5.7-8.2)
[2024-06-18 12:57] LABS: HEMATOCRIT 42.2 % (36.0-47.0); HEMOGLOBIN 13.7 g/dl (12.0-15.5); MEAN CORPUSCULAR HEMOGLOBIN 29.7 pg (27.0-33.0); MEAN CORPUSCULAR HGB CONC 32.5 g/dl (32.0-36.5); MEAN CORPUSCULAR VOLUME 91.3 fl (80.0-96.0); PLATELET COUNT, AUTOMATED 256 10^3/uL (150-450); RED BLOOD COUNT 4.62 10^6/uL (4.00-5.40); WHITE BLOOD COUNT 8.4 10^3/uL (4.0-10.0)
[2024-06-18 13:11] LABS: HEMOGLOBIN A1c 7.7 % (4.0-6.0)
[2024-06-18 13:25] LABS: CREATININE, URINE 155.4 MG/DL; MAU/CREAT RATIO 5.7 MCG/MG (0.0-30.0)
== END ==
LOC: M SFHCADAM 09:40
PROVIDERS: ATTEND Family Medicine
DX: E11.9 Type 2 diabetes mellitus without complications (principal); E78.5 Hyperlipidemia, unspecified; N18.31 Chronic kidney disease, stage 3a

== ENCOUNTER → 2024-08-28 | Outpatient (CLI) | payer MEDICARE ==
[2024-08-28 18:49] LABS: CALCIUM LEVEL 9.8 MG/DL (8.3-10.6); CREATININE FOR GFR 1.23 MG/DL (0.55-1.30); GLOMERULAR FILTRATION RATE 45.7 (>39); POTASSIUM SERUM 4.4 MMOL/L (3.5-5.1)
== END ==
LOC: M WUC 11:20
PROVIDERS: ATTEND Urology
DX: C64.1 Malignant neoplasm of right kidney, except renal pelvis (principal); Z90.5 Acquired absence of kidney; J98.4 Other disorders of lung

== ENCOUNTER → 2024-09-01 | Outpatient (CLI) | payer MEDICARE ==
[~2024-09-01] MED LIST changes: +ISOVUE-370 76% 100ML VIAL ONE
== END ==
LOC: M PLAIMG 11:00
PROVIDERS: ATTEND Urology
DX: C64.1 Malignant neoplasm of right kidney, except renal pelvis (principal); Z90.5 Acquired absence of kidney; N28.1 Cyst of kidney, acquired; I51.7 Cardiomegaly; M47.814 Spondylosis without myelopathy or radiculopathy, thoracic region; D17.5 Benign lipomatous neoplasm of intra-abdominal organs
CPT/HCPCS: 74170; Q9967

== ENCOUNTER → 2024-09-17 | Outpatient (REF) | payer MEDICARE ==
[~2024-09-17] MED LIST changes: -ISOVUE-370 76% 100ML VIAL ONE
[2024-09-17 14:44] LABS: CALCIUM LEVEL 9.7 MG/DL (8.3-10.6); CREATININE FOR GFR 1.04 MG/DL (0.55-1.30); GLOMERULAR FILTRATION RATE 55.5 (>39); POTASSIUM SERUM 4.4 MMOL/L (3.5-5.1)
[2024-09-17 15:11] LABS: HEMOGLOBIN A1c 6.8 % (4.0-6.0)
== END ==
LOC: M SFHCADAM 09:58
PROVIDERS: ATTEND Family Medicine
DX: E11.9 Type 2 diabetes mellitus without complications (principal)

== ENCOUNTER → 2024-12-30 | Outpatient (REF) | payer MEDICARE ==
[2024-12-30 15:06] LABS: HEMATOCRIT 45.2 % (36.0-47.0); HEMOGLOBIN 14.5 g/dl (12.0-15.5); MEAN CORPUSCULAR HEMOGLOBIN 29.6 pg (27.0-33.0); MEAN CORPUSCULAR HGB CONC 32.1 g/dl (32.0-36.5); MEAN CORPUSCULAR VOLUME 92.2 fl (80.0-96.0); PLATELET COUNT, AUTOMATED 273 10^3/uL (150-450)
[2024-12-30 15:16] LABS: ALBUMIN 3.7 G/DL (3.2-5.2); BILIRUBIN,TOTAL 0.3 MG/DL (0.3-1.2); CALCIUM LEVEL 9.8 MG/DL (8.3-10.6); CHOLESTEROL RISK RATIO 2.23 (<5); CREATININE FOR GFR 1.15 MG/DL (0.55-1.30); GLOMERULAR FILTRATION RATE 49.4 (>39); LDL CHOLESTEROL 51.8 MG/DL (<100); POTASSIUM SERUM 4.4 MMOL/L (3.5-5.1); TOTAL PROTEIN 6.8 G/DL (5.7-8.2)
[2024-12-30 15:28] LABS: HEMOGLOBIN A1c 6.7 % (4.0-6.0)
== END ==
LOC: M SFHCADAM 10:09
PROVIDERS: ATTEND Family Medicine
DX: C64.1 Malignant neoplasm of right kidney, except renal pelvis (principal); Z90.5 Acquired absence of kidney; N18.31 Chronic kidney disease, stage 3a; E11.22 Type 2 diabetes mellitus with diabetic chronic kidney disease; E78.5 Hyperlipidemia, unspecified

== ENCOUNTER → 2025-07-07 | Outpatient (REF) | payer MEDICARE ==
[2025-07-07 15:05] LABS: CALCIUM LEVEL 9.2 MG/DL (8.3-10.6); CARBON DIOXIDE LEVEL 27.0 MMOL/L (20-31); CHLORIDE LEVEL 107.0 MMOL/L (98-107); CREATININE FOR GFR 1.23 MG/DL (0.55-1.30); GLOMERULAR FILTRATION RATE 46.7 (>39); POTASSIUM SERUM 4.4 MMOL/L (3.5-5.1); SODIUM LEVEL 142.0 MMOL/L (136-145)
[2025-07-07 15:39] LABS: ESTIMATED AVERAGE GLUCOSE 177.0 MG/DL (60-110)
== END ==
LOC: M SFHCADAM 10:18
PROVIDERS: ATTEND Family Medicine
DX: E11.9 Type 2 diabetes mellitus without complications (principal)

== ENCOUNTER 2025-08-24 08:35 | Day surgery (SDC) | payer MEDICARE ==
[~2025-08-24] VITALS: Ht 167.6 cm; Wt 105.5 kg
[~2025-08-24 08:35] MED LIST changes: +JARD1TAB PO; +SEMA0.257 SQ
[2025-08-24] MEDS ORDERED: LIDOCAINE 2% 100 MG/5 ML SDV (FOR ANES.) As Ordered ONE (09:11)
[2025-08-24 10:50] VITALS: BP 142/69; O2SAT 97
== END 2025-08-24 10:57 | disposition home or self-care (01) ==
LOC: M OPP 08:35
PROVIDERS: ATTEND Internal Medicine Gastroenterology
DX: D12.3 Benign neoplasm of transverse colon (principal); K57.30 Diverticulosis of large intestine without perforation or abscess without bleeding; K64.8 Other hemorrhoids; Z85.038 Personal history of other malignant neoplasm of large intestine; Z88.8 Allergy status to other drugs, medicaments and biological substances; Z79.82 Long term (current) use of aspirin; Z79.4 Long term (current) use of insulin; Z79.84 Long term (current) use of oral hypoglycemic drugs; Z79.85 Long-term (current) use of injectable non-insulin antidiabetic drugs; Z79.899 Other long term (current) drug therapy